=== PATIENT | female | born 1955 | race Caucasian/White ===

== ENCOUNTER 2024-08-06 19:48 | Outpatient (REF) | payer MEDICARE, MEDICAID, SELFPAY ==
[2024-08-06 20:06] LABS: Abs Immature Grans 0.02 10^3/uL (0.0-0.06); Absolute Basophil Count 0.03 10^3/uL (0.0-0.2); Absolute Eosinophil Count 0.21 10^3/uL (0.0-0.7); Absolute Neutrophil Count 5.65 10^3/uL (1.2-6.7); Basophils % 0.4 %; Eosinophils % 2.9 %; HCT 28.8 % (36.0-46.0); HGB 8.8 g/dL (11.2-15.7); Immature Grans % 0.3 %; Lymphocytes % 12.3 %; MCH 29.1 pg (27.0-33.0); MCHC 30.6 % (32.0-36.0); MCV 95 fL (80-95); MPV 10.8 fL (8.0-11.0); Monocytes % 6.8 %; Neutrophils % 77.3 %; Platelet Count 361 10^3/uL (130-400); RBC 3.02 10^6/uL (3.93-5.22); RDW 14.9 % (11.7-14.6); RDW-SD 52.1 fL; WBC 7.31 10^3/uL (4.4-10.8)
[2024-08-06 20:23] LABS: Iron 25 ug/dL (50-170); Total Iron Binding Capacity 202 ug/dL (250-450); Transferrin Sat 12 % (15-50)
[2024-08-06 20:33] LABS: Hemoglobin A1C 5.2 % (<5.7)
[2024-08-06 20:50] LABS: ALT 38 U/L (14-59); AST 29 U/L (15-37); Albumin 2.6 g/dL (3.4-5.0); Alkaline Phosphatase 152 U/L (46-116); Anion Gap 7.1 mmol/L (3-11); BUN 7 mg/dL (7-18); Bilirubin, Total 0.3 mg/dL (0.2-1.0); CO2 32.9 mmol/L (21.0-32.0); CREATININE 0.9 mg/dL (0.55-1.02); Calcium 8.7 mg/dL (8.5-10.1); Chloride 110 mmol/L (98-107); Estimated GFR 68.77 (mL/min/1.73m2); Ferritin 58 ng/mL (8-252); Folate 14.3 ng/mL (8.6-20.0); Glucose 106 mg/dL (74-106); Potassium 3.3 mmol/L (3.5-5.1); Sodium 150 mmol/L (136-145); TSH (W/Ref FT4) 0.69 uIU/mL (0.36-3.74); Total Protein 5.2 g/dL (6.4-8.2); Vitamin B12 576 pg/mL (193-986); Vitamin D 25 Total 43 ng/mL (30-100)
[2024-08-06 21:20] LABS: NT-proBNP 205 pg/mL (<300)
== END 2024-08-06 19:49 | disposition home or self-care (01) ==
LOC: LBN 19:48
PROVIDERS: PCP Family Medicine; Visit Provider Nurse Practitioner Gerontology
DX: I50.9 Heart failure, unspecified (principal); R73.03 Prediabetes; E55.9 Vitamin D deficiency, unspecified; E87.8 Other disorders of electrolyte and fluid balance, not elsewhere classified; D52.9 Folate deficiency anemia, unspecified; D50.9 Iron deficiency anemia, unspecified; R53.81 Other malaise; D63.1 Anemia in chronic kidney disease
CPT/HCPCS: 80053; 82306; 82607; 82728; 82746; 83036; 83540; 83550; 83735; 83880; 84443; 85025

== ENCOUNTER 2024-09-06 08:35 | Inpatient (IN) | payer MEDICARE, MEDICAID, SELFPAY ==
[2024-09-06] VITALS (24 sets, daily range): BP systolic 147–185; BP diastolic 79–108; PULSE 97–120; RESP 12–26; TEMP 36.7–37.3; O2SAT 92–97
--- NOTE | 2024-09-06 08:30 | RT.EKG_ITS ---
APPROVED REPORT Exam: Resting ECG Reason for Exam: seizure activity Patient Location: E HR:113 bpm ECG Measurements Heart Rate 113 AXIS SC 176 P 46 QRSd 73 QRS -14 QT 345 T 15 QTc 473 Conclusion Sinus tachycardia, rate 113 No interval abnormalities No STEMI Q waves III, aVF No priors available for comparison
--- NOTE | 2024-09-06 08:30 | DI.RAD_ITS ---
Exam(s) XR CHEST 1V IN DI DEPT EXAM: XR CHEST 1V IN DI DEPT CLINICAL HISTORY: tachycardia TECHNIQUE: 2D digital imaging was performed of the chest. One image was obtained. An AP view was ob tained. COMPARISON: No exams were available for comparison FINDINGS: MEDIASTINUM: Normal. HEART: Normal. PULMONARY VASCULATURE: Normal. LUNGS: There are increased lung markings in the right base. The left lung is clear. PLEURAL SPACE: No pleural effusion or pneumothorax. BONE:Within normal limits for the patient's age. There is an old left 3rd rib fracture deformity. Th e patient has a left shoulder prosthesis. OTHER FINDINGS:Normal. IMPRESSION: Small infiltrate in the right lung base. Atelectasis versus pneumonia. Please correlate clinically. DATA REPOSITORY: RADIATION DOSE DELIVERED:
[2024-09-06 09:04] LABS: Abs Immature Grans 0.12 10^3/uL (0.0-0.06); Absolute Basophil Count 0.03 10^3/uL (0.0-0.2); Absolute Eosinophil Count 0.16 10^3/uL (0.0-0.7); Absolute Lymphocyte Count 0.82 10^3/uL (1.2-3.4); Absolute Monocyte Count 0.31 10^3/uL (0.1-0.8); Absolute Neutrophil Count 6.24 10^3/uL (1.2-6.7); Basophils % 0.4 %; Eosinophils % 2.1 %; HCT 33.6 % (36.0-46.0); Immature Grans % 1.6 %; Lymphocytes % 10.7 %; MCH 28.9 pg (27.0-33.0); MCHC 32.7 % (32.0-36.0); MCV 88 fL (80-95); MPV 10.2 fL (8.0-11.0); Neutrophils % 81.2 %; Platelet Count 313 10^3/uL (130-400); RBC 3.81 10^6/uL (3.93-5.22); RDW 13.2 % (11.7-14.6); RDW-SD 42.3 fL; WBC 7.68 10^3/uL (4.4-10.8)
[2024-09-06 09:08] LABS: Lactate 5.5 mmol/L (<or=2.0)
[2024-09-06 09:28] LABS: ALT 20 U/L (14-59); AST 27 U/L (15-37); Albumin 3.1 g/dL (3.4-5.0); Alkaline Phosphatase 123 U/L (46-116); BUN 6 mg/dL (7-18); Bilirubin, Total 0.5 mg/dL (0.2-1.0); CREATININE 1.1 mg/dL (0.55-1.02); Calcium 9.1 mg/dL (8.5-10.1); Chloride 104 mmol/L (98-107); Estimated GFR 54.06 (mL/min/1.73m2); Glucose 155 mg/dL (74-106); Lipase 17 U/L (<78); Magnesium 1.9 mg/dL (1.8-2.4); Sodium 144 mmol/L (136-145); Total Protein 6.4 g/dL (6.4-8.2)
[2024-09-06 09:30] LABS: Creatine Kinase 51 U/L (26-192)
[2024-09-06 09:31] LABS: Ammonia < 10 umol/L (11-32)
[2024-09-06 09:32] LABS: TSH (W/Ref FT4) 1.82 uIU/mL (0.36-3.74); Troponin I 6 ng/L (<or=51)
[2024-09-06] MEDS: Omnipaque 350 MG/ML 100 ML BTL IJ ×2 (09:34→09:37)
[2024-09-06 09:35] LABS: Potassium 2.8 mmol/L (3.5-5.1)
[2024-09-06] MEDS: Normal Saline - Diluent 50 ML VIAL IJ (09:40)
--- NOTE | 2024-09-06 09:41 | NUR.NOTE ---
Nursing Note: left AC IV infiltrated during CT w/ contrast. IV DCed and warm pack applied to area
[2024-09-06] MEDS: Normal Saline 1,000 ML 1000 ML IV (09:43)
--- NOTE | 2024-09-06 09:45 | DI.CT_ITS ---
Exam(s) CT BRAIN NECK CTA EXAM: CT BRAIN NECK CTA CLINICAL HISTORY: seizure activity, no history; schizophrenic. TECHNIQUE: Imaging Protocol: Axial CT angiography was performed with multi-slice acquisition and mu lti-planar and/or 3D reconstructions. CONTRAST MATERIAL: Intravenous: Omnipaque 350 contrast volume:70 mL COMPARISON: No exams were available for comparison FINDINGS: CT Head W/O and W: Ventricles and Extra axial spaces: Normal in size and morphology for the patient's age. Hemorrhage: None. Cerebral parenchyma: There are areas of decreased attenuation in the white matter likely reflecting c hronic microvascular ischemic disease. No acute mass effect. No evidence of an acute territorial in farct is seen. Midline shift: None. Brainstem/Cerebellum: Normal. Calvarium: Normal. Visualized Paranasal sinuses/Mastoids: Clear. Soft Tissues: Unremarkable. Enhancement: Unremarkable. CTA Neck W: Common Carotid: Right: No dissection, occlusion or significant stenosis. Left: No dissection, occlusion or significant stenosis. External Carotid: Right: No occlusion or significant stenosis. Left: No occlusion or significant stenosis. Internal Carotid: Right: No dissection, occlusion or significant stenosis. Left: No dissection, occlusion or significant stenosis. Vertebral Artery: Right: No dissection, occlusion or significant stenosis. Left: No dissection, occlusion or significant stenosis. Lung Apices: Normal. Bones: Within normal limits for the patient's age. Age-appropriate degenerative changes are present. Soft Tissues: Normal. Thyroid gland: Unremarkable. CTA Brain W: Internal Carotid Arteries: There is mild atherosclerotic calcification present. No occlusion, aneurys m or significant stenosis is present. Anterior Cerebral Arteries: Right: No aneurysm, occlusion or significant stenosis. Left: No aneurysm, occlusion or significant stenosis. Middle Cerebral Arteries: Right: No aneurysm, occlusion or significant stenosis. Left: No aneurysm, occlusion or significant stenosis. Posterior Cerebral Arteries: Right: No aneurysm, occlusion or significant stenosis. Left: No aneurysm, occlusion or significant stenosis. Vertebral Arteries: Right: No aneurysm, occlusion or significant stenosis. Left: No aneurysm, occlusion or significant stenosis. Basilar Artery: No aneurysm, occlusion or significant stenosis. IMPRESSION: 1. No large vessel occlusion or significant stenosis on the CT angiography of the head. 2. No acute intracranial process. 3. No evidence of an intracranial mass or enhancing lesion. 4. No occlusion or significant stenosis on the CT angiography of the neck. RADIATION DOSE DELIVERED: 2,294.61mGy.cm Total DLP DATA REPOSITORY: All CT scans at this facility are submitted to the National Radiology Data Registry (NRDR) Dose Index Registry (DIR) with the [employer] (A[employer]). RADIATION OPTIMIZATION: All CT scans at this facility use at least one of these dose optimization te chniques: automated exposure control; mA and/or kV adjustment per patient size (includes targeted exa ms where dose is matched to clinical indication); or iterative reconstruction.
[2024-09-06] MEDS: MAGNESIUM SULFATE 1 GM/100 ML BAG IV_INF (10:09)
[2024-09-06] MEDS: POTASSIUM CHLORIDE 10 MEQ/100 ML BAG 100 MEQ IV_INF ×2 (10:09→11:49)
--- NOTE | 2024-09-06 10:15 | W.ED.GENAD ---
Discharge Plan Disposition Patient Disposition: Admit to [facility] Condition: Stable Discharge Details Clinical Impression: Witnessed seizure-like activity, Urinary tract infection, Right lower lobe pneumonia Admit Date/Time: 09/06/24 13:21 Admit Provider: Pankaj Zamora Attending Provider: Pankaj Zamora Primary Care Provider: [facility] ED Provider: Ernst Ramirez HPI General Date/Time Provider Initiated Documentation: 09/06/24 08:40. HPI Narrative: 69 year-old female presents to ED today by EMS with a chief complaint of witnessed seizure-like activity at the [facility] in [place], no seizure history per staff there- has known schizophrenia on Abilify, gets around at baseline but doesn't talk much with onset just prior to arrival, 30-60 mins ago. Quality described as not described as full tonic-clonic activity staff relayed to EMS, no radiation to known trauma, obvious bruising/swelling/deformity, abnormal vitals. Severity is described as unable to quantify. Palliating factors include patient was given 2mg IVP Ativan by EMS in route. Provoking factors include nothing specific. Patient not anticoagulated. Related Data Home Medications ?Medication ?Instructions ?Recorded ?Confirmed aripiprazole 5 mg tablet 5 mg PO DAILY 02/24/23 09/06/24 enoxaparin 40 mg/0.4 mL 40 mg subcut BID 09/06/24 09/06/24 subcutaneous syringe paliperidone palmitate 117 mg/0.75 117 mg IM Q30D 09/06/24 09/06/24 mL intramuscular syringe (Erzofri) Allergies Allergy/AdvReac Type Severity Reaction Status Date / Time erythromycin base Allergy unknown Verified 06/24/23 14:20 General Stated Complaint: Seizure GABY: 2 Review of Systems All systems reviewed & are unremarkable except as noted in HPI and below Exam Narrative Exam Narrative: GENERAL APPEARANCE: Frail and cachectic, non-toxic, postictal or catatonic, gazing straight ahead without reactions to spontaneous events, atraumatic, no acute distress. SKIN: Warm, pink, dry, intact, without rashes/lesions/ulcerations. HEAD: Normocephalic, atraumatic-no [place] sign, no periorbital ecchymosis, normal hair distribution for gender/age. EYES: Normal conjunctiva, no exudates on lids/lashes, pupils PERRLA, patient is gazing around the room very infrequently and her EOMs appear to be intact but she does not cooperate with EOM testing ENT: Nares patent, no circumoral cyanosis, no facial swelling NECK: Supple, trachea midline, painless cervical ROM, no nuchal rigidity. LUNGS/CHEST: Lungs CTA bilaterally-no rhonchi/rales/wheezes diffusely, non-labored respirations, normal A/P diameter, symmetrical expansion, no chest wall deformity HEART (CV/PV): Regular rate and rhythm without murmur, no peripheral edema, no JVD. ABDOMEN: Soft, non-distended, no guarding, no ecchymosis or rigidity or tenderness. MSK: Normal ROM, no swelling/deformity to bilateral UEs or LEs, moving all extremities without weakness, no cyanosis, spine midline without tenderness, normal curvature. NEURO: Mental Status flat and encephalopathic No facial droop, no forehead involvement. Motor: No focal weakness - strength 5/5 in bilateral UEs and LEs, proximal and distal, symmetric, able to squeeze my hand Sensory: sensation intact to light touch globally. Gait NT PSYCH: Eyes open, occasional following of spontaneous events, mumbling, unclear baseline with schizophrenia Course Vital Signs Vital signs: Vital Signs Temperature 36.7 C 09/06/24 08:37 Pulse 114 H 09/06/24 08:37 Respiratory Rate 18 09/06/24 08:37 Blood Pressure 171/95 H 09/06/24 08:37 Pulse Oximetry 92 09/06/24 08:37 Temperature 36.7 C 09/06/24 08:37 Temperature Source Tympanic 09/06/24 08:37 Pulse 114 H 09/06/24 08:37 Respiratory Rate 18 09/06/24 08:37 Blood Pressure 171/95 H 09/06/24 08:37 Pulse Oximetry 92 09/06/24 08:37 Oxygen Delivery Method Room Air 09/06/24 08:37 Oxygen Flow Rate 0 09/06/24 08:37 Lab/Test Results Lab/Test Results: 09/06/24 08:58 Blood Blood Culture - Pending 09/06/24 08:41 Blood Blood Culture - Pending Laboratory Tests Range/Units 09/06/24 09/06/24 08:53 08:58 WBC (4.4-10.8) 10^3/uL 7.68 RBC (3.93-5.22) 10^6/uL 3.81 L Hgb (11.2-15.7) g/dL 11.0 L Hct (36.0-46.0) % 33.6 L MCV (80-95) fL 88 MCH (27.0-33.0) pg 28.9 MCHC (32.0-36.0) % 32.7 RDW (11.7-14.6) % 13.2 Plt Count (130-400) 10^3/uL 313 MPV (8.0-11.0) fL 10.2 Immature Gran % % 1.6 Neutrophils % % 81.2 Lymphocytes % % 10.7 Monocytes % % 4.0 Eosinophils % % 2.1 Basophils % % 0.4 Nucleated RBC % (0.0-0.3) % 0.0 Absolute Neutrophils (1.2-6.7) 10^3/uL 6.24 Absolute Lymphocytes (1.2-3.4) 10^3/uL 0.82 L Absolute Monocytes (0.1-0.8) 10^3/uL 0.31 Absolute Eosinophils (0.0-0.7) 10^3/uL 0.16 Absolute Basophils (0.0-0.2) 10^3/uL 0.03 VBG Lactate (<or=2.0) mmol/L 5.5 H* Sodium (136-145) mmol/L 144 Potassium (3.5-5.1) mmol/L 2.8 L* Chloride (98-107) mmol/L 104 Carbon Dioxide (21.0-32.0) mmol/L 29.0 Anion Gap (3-11) mmol/L 11.0 BUN (7-18) mg/dL 6 L Creatinine (0.55-1.02) mg/dL 1.1 H Est GFR (CKD-EPI 2020) (mL/min/1.73m2) 54.06 Glucose (74-106) mg/dL 155 H Calcium (8.5-10.1) mg/dL 9.1 Magnesium (1.8-2.4) mg/dL 1.9 Total Bilirubin (0.2-1.0) mg/dL 0.5 AST (15-37) U/L 27 ALT (14-59) U/L 20 Alkaline Phosphatase (46-116) U/L 123 H Ammonia (11-32) umol/L < 10 L Creatine Kinase (26-192) U/L 51 Troponin I (<or=51) ng/L 6 Total Protein (6.4-8.2) g/dL 6.4 Albumin (3.4-5.0) g/dL 3.1 L Lipase (<78) U/L 17 TSH (0.36-3.74) uIU/mL 1.82 Medical Decision Making This dictation utilizes [id number] dictation software and may contain unedited grammatical errors. 69 year-old female presents to ED today by EMS with a chief complaint of witnessed seizure-like activity at the [facility], no seizure history per staff there- has known schizophrenia on Abilify, gets around at baseline but doesn't talk much with onset just prior to arrival, 30-60 mins ago. Quality described as not described as full tonic-clonic activity staff relayed to EMS, no radiation to known trauma, obvious bruising/swelling/deformity, abnormal vitals. Severity is described as unable to quantify. Palliating factors include patient was given 2mg IVP Ativan by EMS in route. Provoking factors include nothing specific. Patients' medical history: Schizophrenia, psychotic disorder. Family and social history: Lives at the [facility], otherwise does not answer questions. Pertinent exam findings / vital signs include patient has a fixed gaze slightly to the left, brief seconds where she follows activity spontaneously and mumbles words, she is able to move all extremities, she does gently squeeze my hand when asked, I am unclear on her psychologic baseline with her chronic schizophrenia, benign cardiopulmonary exam, benign abdomen, nontoxic, no nuchal rigidity, managing secretions well. Differential / pathologies of concern include encephalopathy, seizure activity, provoked seizure, infectious etiology, side effect of antipsychotic medication. Diagnostic studies of: - CBC, CMP, lactate, magnesium, serial troponins, CK, ammonia, lipase, TSH, UA, blood cultures, EKG, CTA brain and neck, XR chest. Interventions of: -[facility] TeleNeurology consult - spoke to Dr. Tena @ [phone]-patient has a difficult neuroexam for even [facility] teleneurology, she could be postictal but you would expect that side effects of Ativan would have worn off by now at 3.5 hours into her visit, Dr. Jones states that postictal state can last for 24 hours, we discussed that this is likely a provoked seizure due to the evidence of nitrates on the patient's urinalysis and she does have a right lower lobe infiltrate, she has received ceftriaxone for this, teleneurology recommends observation of the patient, if she does not improve from this state to somewhat of a more alert state by the 12-hour ajne they recommend loading her with Keppra and further observation, at this time they recommend against transfer for EEG, patient may also be encephalopathic from unknown cause like infection but her UTI appears to be mild on urinalysis. - Spoke with hospitalist Dr. Zamora @ [phone], accepted for admission ED Course/Assessment/Plan: 69-year-old female presents by EMS for witnessed seizure-like activity at the [facility] in [place], she has no seizure history but does have a significant history of chronic schizophrenia on Abilify, per the staff there she does get up and get around quite well but does not talk often. She is essentially catatonic on arrival and received 2 mg of IV push lorazepam by EMS. She is not having any focal clonus or tonic-clonic activity during my exam, she does slightly improve over the next hour to mumble words and gaze around the room at spontaneous events more frequently but is overall encephalopathic or postictal. Her lactate initially was 5.5 indicating likely seizure activity. Her chest x-ray shows a right lower lobe infiltrate and her urinalysis shows nitrates making this likely a urinary tract infection which was covered with IV ceftriaxone, blood cultures are pending, CTA of her head and neck are unremarkable, discussed findings with [facility] teleneurology and they recommend hobs due to provoked seizure, do not recommend transfer for specialty care and admission like EEG and MRI at this time, they recommend starting her on IV loading dose of Keppra if seizures not improved at the 12-hour jane with possible need for reconsultation if she has not improved in a full 24 hours with initiation of antiepileptic therapy. Dr. Vazquez accepts for admission, no acute complications in department, no labile vital signs or decompensation. Findings not consistent with status epilepticus, severe electrolyte derangement, stroke, ICH, respiratory distress or failure, rhabdomyolysis. Disposition of Witnessed Seizure-Like Activity, Urinary Tract Infection, Right Lower Lobe Pneumonia. Patient verbalized understanding of the plan and return to ED criteria and engaged in shared decision making. Medical Records Medical records reviewed: Yes I reviewed the patient's medical records. Imaging Data Radiologic Study: Attestation: I personally reviewed and interpreted this imaging study as follows: Imaging: CT Scan Radiologist's impression: EXAM: CT BRAIN NECK CTA CLINICAL HISTORY: seizure activity, no history; schizophrenic. TECHNIQUE: Imaging Protocol: Axial CT angiography was performed with multi-slice acquisition and multi-planar and/or 3D reconstructions. CONTRAST MATERIAL: Intravenous: Omnipaque 350 contrast volume:70 mL COMPARISON: No exams were available for comparison FINDINGS: CT Head W/O and W: Ventricles and Extra axial spaces: Normal in size and morphology for the patient's age. Hemorrhage: None. Cerebral parenchyma: There are areas of decreased attenuation in the white matter likely reflecting chronic microvascular ischemic disease. No acute mass effect. No evidence of an acute territorial infarct is seen. Midline shift: None. Brainstem/Cerebellum: Normal. Calvarium: Normal. Visualized Paranasal sinuses/Mastoids: Clear. Soft Tissues: Unremarkable. Enhancement: Unremarkable. CTA Neck W: Common Carotid: Right: No dissection, occlusion or significant stenosis. Left: No dissection, occlusion or significant stenosis. External Carotid: Right: No occlusion or significant stenosis. Left: No occlusion or significant stenosis. Internal Carotid: Right: No dissection, occlusion or significant stenosis. Left: No dissection, occlusion or significant stenosis. Vertebral Artery: Right: No dissection, occlusion or significant stenosis. Left: No dissection, occlusion or significant stenosis. Lung Apices: Normal. Bones: Within normal limits for the patient's age. Age-appropriate degenerative changes are present. Soft Tissues: Normal. Thyroid gland: Unremarkable. CTA Brain W: Internal Carotid Arteries: There is mild atherosclerotic calcification present. No occlusion, aneurysm or significant stenosis is present. Anterior Cerebral Arteries: Right: No aneurysm, occlusion or significant stenosis. Left: No aneurysm, occlusion or significant stenosis. Middle Cerebral Arteries: Right: No aneurysm, occlusion or significant stenosis. Left: No aneurysm, occlusion or significant stenosis. Posterior Cerebral Arteries: Right: No aneurysm, occlusion or significant stenosis. Left: No aneurysm, occlusion or significant stenosis. Vertebral Arteries: Right: No aneurysm, occlusion or significant stenosis. Left: No aneurysm, occlusion or significant stenosis. Basilar Artery: No aneurysm, occlusion or significant stenosis. IMPRESSION: 1. No large vessel occlusion or significant stenosis on the CT angiography of the head. 2. No acute intracranial process. 3. No evidence of an intracranial mass or enhancing lesion. 4. No occlusion or significant stenosis on the CT angiography of the neck. Radiologic Study #2: Attestation: I personally reviewed and interpreted this imaging study as follows: Imaging: X-Ray Radiologist's impression: EXAM: XR CHEST 1V IN DI DEPT CLINICAL HISTORY: tachycardia TECHNIQUE: 2D digital imaging was performed of the chest. One image was obtained. An AP view was obtained. COMPARISON: No exams were available for comparison FINDINGS: MEDIASTINUM: Normal. HEART: Normal. PULMONARY VASCULATURE: Normal. LUNGS: There are increased lung markings in the right base. The left lung is clear. PLEURAL SPACE: No pleural effusion or pneumothorax. BONE:Within normal limits for the patient's age. There is an old left 3rd rib fracture deformity. The patient has a left shoulder prosthesis. OTHER FINDINGS:Normal. IMPRESSION: Small infiltrate in the right lung base. Atelectasis versus pneumonia. Please correlate clinically. Lab Data Lab results reviewed: Yes I reviewed the patient's lab results. Labs: 09/06/24 10:43 Urine - Reflex from Ua Urine Culture - Pending 09/06/24 10:00 Blood Blood Culture - Pending 09/06/24 08:58 Blood Blood Culture - Pending Laboratory Tests Range/Units 09/06/24 09/06/24 09/06/24 08:53 08:58 10:00 WBC (4.4-10.8) 10^3/uL 7.68 RBC (3.93-5.22) 10^6/uL 3.81 L Hgb (11.2-15.7) g/dL 11.0 L Hct (36.0-46.0) % 33.6 L MCV (80-95) fL 88 MCH (27.0-33.0) pg 28.9 MCHC (32.0-36.0) % 32.7 RDW (11.7-14.6) % 13.2 Plt Count (130-400) 10^3/uL 313 MPV (8.0-11.0) fL 10.2 Immature Gran % % 1.6 Neutrophils % % 81.2 Lymphocytes % % 10.7 Monocytes % % 4.0 Eosinophils % % 2.1 Basophils % % 0.4 Nucleated RBC % (0.0-0.3) % 0.0 Absolute Neutrophils (1.2-6.7) 10^3/uL 6.24 Absolute Lymphocytes (1.2-3.4) 10^3/uL 0.82 L Absolute Monocytes (0.1-0.8) 10^3/uL 0.31 Absolute Eosinophils (0.0-0.7) 10^3/uL 0.16 Absolute Basophils (0.0-0.2) 10^3/uL 0.03 VBG Lactate (<or=2.0) mmol/L 5.5 H* Sodium (136-145) mmol/L 144 Potassium (3.5-5.1) mmol/L 2.8 L* Chloride (98-107) mmol/L 104 Carbon Dioxide (21.0-32.0) mmol/L 29.0 Anion Gap (3-11) mmol/L 11.0 BUN (7-18) mg/dL 6 L Creatinine (0.55-1.02) mg/dL 1.1 H Est GFR (CKD-EPI 2020) (mL/min/1.73m2) 54.06 Glucose (74-106) mg/dL 155 H Calcium (8.5-10.1) mg/dL 9.1 Magnesium (1.8-2.4) mg/dL 1.9 Total Bilirubin (0.2-1.0) mg/dL 0.5 AST (15-37) U/L 27 ALT (14-59) U/L 20 Alkaline Phosphatase (46-116) U/L 123 H Ammonia (11-32) umol/L < 10 L Creatine Kinase (26-192) U/L 51 Troponin I (<or=51) ng/L 6 12 Total Protein (6.4-8.2) g/dL 6.4 Albumin (3.4-5.0) g/dL 3.1 L Lipase (<78) U/L 17 TSH (0.36-3.74) uIU/mL 1.82 Urine Color (Yellow) Urine Clarity (Clear) Urine pH (5-8) Ur Specific [place] (1.005-1.025) Urine Protein (Neg-Trace) mg/dL Urine Ketones (Negative) mg/dL Urine Blood (Negative) Urine Nitrite (Negative) Urine Bilirubin (Negative) Urine Urobilinogen (Up to 0.2) mg/dL Ur Leukocyte Esterase (Negative) Urine RBC (0-2) HPF Urine WBC (0-5) HPF Ur Epithelial Cells (Negative) HPF Urine Crystals (Negative) HPF Urine Bacteria (Negative) HPF Urine Casts (Negative) LPF Urine Mucus (Negative) Ur Culture Indicated? Urine Glucose (Negative) mg/dL Range/Units 09/06/24 10:43 WBC (4.4-10.8) 10^3/uL RBC (3.93-5.22) 10^6/uL Hgb (11.2-15.7) g/dL Hct (36.0-46.0) % MCV (80-95) fL MCH (27.0-33.0) pg MCHC (32.0-36.0) % RDW (11.7-14.6) % Plt Count (130-400) 10^3/uL MPV (8.0-11.0) fL Immature Gran % % Neutrophils % % Lymphocytes % % Monocytes % % Eosinophils % % Basophils % % Nucleated RBC % (0.0-0.3) % Absolute Neutrophils (1.2-6.7) 10^3/uL Absolute Lymphocytes (1.2-3.4) 10^3/uL Absolute Monocytes (0.1-0.8) 10^3/uL Absolute Eosinophils (0.0-0.7) 10^3/uL Absolute Basophils (0.0-0.2) 10^3/uL VBG Lactate (<or=2.0) mmol/L Sodium (136-145) mmol/L Potassium (3.5-5.1) mmol/L Chloride (98-107) mmol/L Carbon Dioxide (21.0-32.0) mmol/L Anion Gap (3-11) mmol/L BUN (7-18) mg/dL Creatinine (0.55-1.02) mg/dL Est GFR (CKD-EPI 2020) (mL/min/1.73m2) Glucose (74-106) mg/dL Calcium (8.5-10.1) mg/dL Magnesium (1.8-2.4) mg/dL Total Bilirubin (0.2-1.0) mg/dL AST (15-37) U/L ALT (14-59) U/L Alkaline Phosphatase (46-116) U/L Ammonia (11-32) umol/L Creatine Kinase (26-192) U/L Troponin I (<or=51) ng/L Total Protein (6.4-8.2) g/dL Albumin (3.4-5.0) g/dL Lipase (<78) U/L TSH (0.36-3.74) uIU/mL Urine Color (Yellow) Yellow Urine Clarity (Clear) Clear Urine pH (5-8) 7.0 Ur Specific [place] (1.005-1.025) 1.010 Urine Protein (Neg-Trace) mg/dL Negative Urine Ketones (Negative) mg/dL Negative Urine Blood (Negative) Negative Urine Nitrite (Negative) Positive H Urine Bilirubin (Negative) Negative Urine Urobilinogen (Up to 0.2) mg/dL 0.2 Ur Leukocyte Esterase (Negative) Negative Urine RBC (0-2) HPF 0-2 Urine WBC (0-5) HPF 5-10 Ur Epithelial Cells (Negative) HPF Rare Urine Crystals (Negative) HPF Negative Urine Bacteria (Negative) HPF Moderate Urine Casts (Negative) LPF Negative Urine Mucus (Negative) Negative Ur Culture Indicated? Yes Urine Glucose (Negative) mg/dL Negative Quality:SDOH Health Related Social Needs: No Data to Display PFSH All Active Problems (Updated 09/06/24 @ 14:39 by Jacquelin Addison APRN) Discharge planning issues (Acute) On deep vein thrombosis (DVT) prophylaxis (Acute) Hypokalemia (Acute) Right lower lobe pneumonia (Acute) Urinary tract infection (Acute) Witnessed seizure-like activity (Acute) Vasomotor rhinitis (Acute) Medical History (Updated 09/06/24 @ 14:39 by Jacquelin Addison APRN) Schizophrenia Psychotic disorder Fracture of multiple pubic rami Fracture of humeral head, left, closed Surgical History (Updated 02/24/23 @ 15:37 by Shereen Nguyen) History of arthroplasty of left shoulder Hx of appendectomy Social History Smoking/Tobacco Use Status: Never Smoking risk assessment performed?: Yes Alcohol Intake: never Substance use type: does not use Housing: penitentiary
[2024-09-06 10:43] LABS: Troponin I 12 ng/L (<or=51)
[2024-09-06 10:55] LABS: Bilirubin Negative (Negative); Blood Negative (Negative); Clarity Clear (Clear); Glucose Negative (Negative); Ketones Negative (Negative); Leukocyte Esterase Negative (Negative); Nitrite Positive (Negative); Urobilinogen 0.2 mg/dL (Up to 0.2)
[2024-09-06 11:02] LABS: Bacteria Moderate HPF (Negative); C & S Indicated? Yes; Casts Negative LPF (Negative); Crystals Negative HPF (Negative); Epithelial Cells Rare HPF (Negative); Mucus Negative (Negative); RBC 0-2 HPF (0-2)
[2024-09-06] MEDS: Potassium Chloride Liquid 20 MEQ PKT 40 MEQ PO (11:14)
[2024-09-06] MEDS: cefTRIAXone 2 GM/50 ML BAG IVPB (11:15)
--- NOTE | 2024-09-06 13:05 | W.PC.ACHO ---
Registration Status: Primary Language: Preferred Language: ED Information & Data Chief Complaint Seizure 09/06/24 12:10 Chief Complaint Seizure 09/06/24 10:17 Triage Note BIBA witnessed seizure like 09/06/24 08:37 activity approx 0755 this AM , has gaze to left, was given 2mg lorazepam prior to arrival, Blood sugar 184 normally able to walk and verbal Medical / Surgical History (Last Updated 02/24/23 @ 15:37 by Shereen Nguyen) Schizophrenia Psychotic disorder Fracture of multiple pubic rami Fracture of humeral head, left, closed (Last Updated 02/24/23 @ 15:37 by Shereen Nguyen) History of arthroplasty of left shoulder Hx of appendectomy Most Recent Vital Signs Temperature 36.7 C 09/06/24 08:37 Temperature Source Tympanic 09/06/24 08:37 Pulse 110 H 09/06/24 12:10 Pulse 110 H 09/06/24 12:10 Respiratory Rate 16 09/06/24 12:10 Blood Pressure 178/98 H 09/06/24 12:11 Blood Pressure Mean 124 09/06/24 12:11 Pulse Oximetry 96 09/06/24 12:10 Oxygen Delivery Method Room Air 09/06/24 08:37 Oxygen Flow Rate 0 09/06/24 08:37 Allergies erythromycin base Allergy (Verified 06/24/23 14:20) unknown Precautions Isolation Standard precaution 09/06/24 12:10 Active Medications Generic Name Dose Route Start Last Admin Trade Name Freq PRN Reason Stop Dose Admin Iohexol 100 ml 09/06/24 09:30 09/06/24 09:37 Omnipaque 350 Mg/Ml 100 Ml Btl IJ 10/06/24 23:59 70 ml DIRECTED CLIFTON Administration Sodium Chloride 50 ml 09/06/24 09:45 09/06/24 09:40 Normal Saline - Diluent 50 Ml Vial IJ 50 ml .FOR DI USE CLIFTON Administration IV IV Catheter Type [Left Saline Lock Antecubital] IV Catheter Type [Right Saline Lock Antecubital] IV Catheter Gauge [Left 18 Antecubital] IV Catheter Gauge [Right 20 Antecubital] Diagnostics 09/06/24 09/06/24 09/06/24 Range/Units Unknown 10:43 10:00 WBC (4.4-10.8) 10^3/uL RBC (3.93-5.22) 10^6/uL Hgb (11.2-15.7) g/dL Hct (36.0-46.0) % MCV (80-95) fL MCH (27.0-33.0) pg MCHC (32.0-36.0) % RDW (11.7-14.6) % Plt Count (130-400) 10^3/uL MPV (8.0-11.0) fL Immature Gran % % Neutrophils % % Lymphocytes % % Monocytes % % Eosinophils % % Basophils % % Nucleated RBC % (0.0-0.3) % Absolute Neutrophils (1.2-6.7) 10^3/uL Absolute Lymphocytes (1.2-3.4) 10^3/uL Absolute Monocytes (0.1-0.8) 10^3/uL Absolute Eosinophils (0.0-0.7) 10^3/uL Absolute Basophils (0.0-0.2) 10^3/uL VBG Lactate Pending (<or=2.0) mmol/L Sodium (136-145) mmol/L Potassium (3.5-5.1) mmol/L Chloride (98-107) mmol/L Carbon Dioxide (21.0-32.0) mmol/L Anion Gap (3-11) mmol/L BUN (7-18) mg/dL Creatinine (0.55-1.02) mg/dL Est GFR (CKD-EPI 2020) (mL/min/1.73m2) Glucose (74-106) mg/dL Calcium (8.5-10.1) mg/dL Magnesium (1.8-2.4) mg/dL Total Bilirubin (0.2-1.0) mg/dL AST (15-37) U/L ALT (14-59) U/L Alkaline Phosphatase (46-116) U/L Ammonia (11-32) umol/L Creatine Kinase (26-192) U/L Troponin I 12 (<or=51) ng/L Total Protein (6.4-8.2) g/dL Albumin (3.4-5.0) g/dL Lipase (<78) U/L Procalcitonin Pending TSH (0.36-3.74) uIU/mL Urine Color Yellow (Yellow) Urine Clarity Clear (Clear) Urine pH 7.0 (5-8) Ur Specific [place] 1.010 (1.005-1.025) Urine Protein Negative (Neg-Trace) mg/dL Urine Ketones Negative (Negative) mg/dL Urine Blood Negative (Negative) Urine Nitrite Positive H (Negative) Urine Bilirubin Negative (Negative) Urine Urobilinogen 0.2 (Up to 0.2) mg/dL Ur Leukocyte Esterase Negative (Negative) Urine RBC 0-2 (0-2) HPF Urine WBC 5-10 (0-5) HPF Ur Epithelial Cells Rare (Negative) HPF Urine Crystals Negative (Negative) HPF Urine Bacteria Moderate (Negative) HPF Urine Casts Negative (Negative) LPF Urine Mucus Negative (Negative) Ur Culture Indicated? Yes Urine Glucose Negative (Negative) mg/dL 09/06/24 09/06/24 Range/Units 08:58 08:53 WBC 7.68 (4.4-10.8) 10^3/uL RBC 3.81 L (3.93-5.22) 10^6/uL Hgb 11.0 L (11.2-15.7) g/dL Hct 33.6 L (36.0-46.0) % MCV 88 (80-95) fL MCH 28.9 (27.0-33.0) pg MCHC 32.7 (32.0-36.0) % RDW 13.2 (11.7-14.6) % Plt Count 313 (130-400) 10^3/uL MPV 10.2 (8.0-11.0) fL Immature Gran % 1.6 % Neutrophils % 81.2 % Lymphocytes % 10.7 % Monocytes % 4.0 % Eosinophils % 2.1 % Basophils % 0.4 % Nucleated RBC % 0.0 (0.0-0.3) % Absolute Neutrophils 6.24 (1.2-6.7) 10^3/uL Absolute Lymphocytes 0.82 L (1.2-3.4) 10^3/uL Absolute Monocytes 0.31 (0.1-0.8) 10^3/uL Absolute Eosinophils 0.16 (0.0-0.7) 10^3/uL Absolute Basophils 0.03 (0.0-0.2) 10^3/uL VBG Lactate 5.5 H* (<or=2.0) mmol/L Sodium 144 (136-145) mmol/L Potassium 2.8 L* (3.5-5.1) mmol/L Chloride 104 (98-107) mmol/L Carbon Dioxide 29.0 (21.0-32.0) mmol/L Anion Gap 11.0 (3-11) mmol/L BUN 6 L (7-18) mg/dL Creatinine 1.1 H (0.55-1.02) mg/dL Est GFR (CKD-EPI 2020) 54.06 (mL/min/1.73m2) Glucose 155 H (74-106) mg/dL Calcium 9.1 (8.5-10.1) mg/dL Magnesium 1.9 (1.8-2.4) mg/dL Total Bilirubin 0.5 (0.2-1.0) mg/dL AST 27 (15-37) U/L ALT 20 (14-59) U/L Alkaline Phosphatase 123 H (46-116) U/L Ammonia < 10 L (11-32) umol/L Creatine Kinase 51 (26-192) U/L Troponin I 6 (<or=51) ng/L Total Protein 6.4 (6.4-8.2) g/dL Albumin 3.1 L (3.4-5.0) g/dL Lipase 17 (<78) U/L Procalcitonin TSH 1.82 (0.36-3.74) uIU/mL Urine Color (Yellow) Urine Clarity (Clear) Urine pH (5-8) Ur Specific [place] (1.005-1.025) Urine Protein (Neg-Trace) mg/dL Urine Ketones (Negative) mg/dL Urine Blood (Negative) Urine Nitrite (Negative) Urine Bilirubin (Negative) Urine Urobilinogen (Up to 0.2) mg/dL Ur Leukocyte Esterase (Negative) Urine RBC (0-2) HPF Urine WBC (0-5) HPF Ur Epithelial Cells (Negative) HPF Urine Crystals (Negative) HPF Urine Bacteria (Negative) HPF Urine Casts (Negative) LPF Urine Mucus (Negative) Ur Culture Indicated? Urine Glucose (Negative) mg/dL 09/06/24 10:43 Urine Culture - Pending Urine - Reflex from Ua 09/06/24 10:00 Blood Culture - Pending Blood 09/06/24 08:58 Blood Culture - Pending Blood Intake and Output - 24 Hour Total 09/06/24 08:28 thru 09/06/24 12:53 Intake Total 1370 Balance 1370 Weight 47.9 kg Intake: IV 1370 Falls Risk Assessment History of Falls Previous History 09/06/24 12:11 Contributing Factors Confusion,Unstable, 09/06/24 12:11 Impairments,Incontinence, Medications Ambulatory Aids Uses ambulatory device + 09/06/24 12:11 Tubes/Lines With any additional score 09/06/24 12:11 Gait Evaluation W/any additional score 09/06/24 12:11 Cognition Cognitive impairment 09/06/24 12:11 Fall Total Score 115 09/06/24 12:11 Level of Risk Maximum Risk 09/06/24 12:11 Problems (Last Updated 02/24/23 @ 15:37 by Shereen Nguyen) Right lower lobe pneumonia (Acute) Urinary tract infection (Acute) Witnessed seizure-like activity (Acute) Notes 09/06/24 09:41 Nursing Notes by Shira Garcia Nursing Note: left AC IV infiltrated during CT w/ contrast. IV DCed and warm pack applied to area Initialized on 09/06/24 09:41 - END OF NOTE v v v v v v v v v Sending and/or Receiving Nurses: Please use comment section below to note any information pertinent to the patient hand-off not included above. Information / Comments: pt to rm 215 from er Report received from: Shira vasquez
[2024-09-06 13:41] LABS: Lactate 1.1 mmol/L (<or=2.0)
[2024-09-06 14:15] LABS: Procalcitonin < 0.10 ng/mL
--- NOTE | 2024-09-06 14:33 | W.PM.HP.N ---
Date of service: 09/06/24 Time of Service: 14:33 Assessment and Plan Assessment and plan (1) Witnessed seizure-like activity: Status: Acute Assessment and plan: This is the primary working diagnosis. But in the setting of recently change Abilify to paliperidone and observed spasticity improving with initiation of benzodiazepines earlier with improvement in spasticity and catatonic state and now the reoccurrence of the symptoms, depression diagnosis of catatonia due to Abilify withdrawal should not be excluded. Moreover, clinical nurse leader reported that the patient had a previous episode of similarly observed seizure at [facility] recently; this was not reported to the emergency provider as well as to the tele- neurologist. In the case of catatonia benzodiazepine would be the course of treatment. Will follow the course for the primary working diagnosis and reevaluate in the morning. As the patient is displaying recurrence/crescendo of symptoms we will initiate Keppra loading. CTA head neck negative Neuroconsult: No MRI elias EEG recommendation at this time MRI in AM if no improvement of post-ictal state Ativan given NEON TUBE PUMPER will order for now (2) Encephalopathy: Status: Acute Assessment and plan: This might be due to postictal state versus catatonia in the setting of withdrawal from Abilify versus infectious etiology at for section 3 and 4 Ammonia is negative At this time the patient is unable to take in oral fluids and will complete slow IV hydration overnight and reassess in the morning (3) Right lower lobe pneumonia: Status: Acute Assessment and plan: As per chest imaging Continue ceftriaxone Blood cultures pending (4) Urinary tract infection: Status: Acute Assessment and plan: UA showing nitrate Urine culture pending And as per point 1 (5) Schizophrenia: Assessment and plan: Was treated with Abilify since been changed to paliperidone IM every month Will need to continue this therapy if her due date is met while she in hospital versus change in therapy needed. Open await records from recent stay at [facility] to tailor plan Consider psych consult if deemed necessary (6) Hypokalemia: Status: Acute Assessment and plan: K 2.8 in the setting of lactate at 5.5 Oral replacement X 1 given in ED IV replacement Telemetry BMP in AM (7) On deep vein thrombosis (DVT) prophylaxis: Status: Acute Assessment and plan: ON LMWH treatment dose for DVT as per home med list (8) Discharge planning issues: Status: Acute Assessment and plan: D/c to the [facility] when stable Discussed with Dr. Zamora History of Present Illness History of Present Illness Chief Complaint: Witnessed seizure-like activity Narrative: This 69-year-old female patient living at the [facility] with a past medical history of schizophrenia on Abilify with recent transition to IM paliperidone, recent stay at [facility] with reported witnessed seizure-like activity, presented today to the ED via EMS for witnessed seizure-like activity. Initially ED provider mentioned no seizure history with significant history of chronic schizophrenia when she was on Abilify. As per the staff at the [facility], the patient gets up and gets around quite well but does not talk often. On arrival the patient was described as catatonic and received 2 mg of IV push lorazepam by EMS. No observed focal clonus or tonic-clonic activity with slightly improvement resulting in word mumbling and gazing around the room over the next hour overall remaining overall encephalopathic or post-ictal. Head and neck CTA was negative, initial lactate at 5.5 in the setting of seizure activit-correcting to 1.1. Hypokalemia and hypomagnesemia also evident as per chemistry blood work. EKG showed sinus tachycardia heart rate 113 without signs of coronary occlusion. Chest x-ray showed right lower lobe infiltrate; UA positive for nitrate. Patient seen by neurology Dr. Ojeda was consulted with mention of postictal state lasting up to 24 hours likely provoked by seizure due to dizziness of nitrates on the patient's UA. Further recommendation to initiate Keppra loading at the 12-hour jane if no improvement during observation; recommendations against transfer for EEG. In the ED, IV ceftriaxone was initiated and the patient was admitted to the medical surgical floor cardiovascular service for further evaluation and management. Patient is a DNR/DNI as per records from [facility]. Patient also was not taking home meds and was treated with low molecular weight heparin for DVT. When seen in the room, the patient was initially able to slightly grab with her fingers on command,withdrawal from deep tactile stimulation, was unable to complete eye-opening and remains significantly spastic and nonverbal nonverbal. When seen later, increased spasticity observed. Review of system remains minimal as the patient was unable to answer questions. No vomiting, diarrhea, hematuria reported. Review of Systems All systems reviewed & are unremarkable except as noted in HPI and below PFSH All Active Problems (Updated 09/06/24 @ 20:11 by Jacquelin Addison APRN) Encephalopathy (Acute) Discharge planning issues (Acute) On deep vein thrombosis (DVT) prophylaxis (Acute) Hypokalemia (Acute) Right lower lobe pneumonia (Acute) Urinary tract infection (Acute) Witnessed seizure-like activity (Acute) Vasomotor rhinitis (Acute) Medical History (Updated 09/06/24 @ 20:11 by Jacquelin Addison APRN) Schizophrenia Psychotic disorder Fracture of multiple pubic rami Fracture of humeral head, left, closed Surgical History (Updated 02/24/23 @ 15:37 by Shereen Nguyen) History of arthroplasty of left shoulder Hx of appendectomy Social History Smoking/Tobacco Use Status: Never Smoking risk assessment performed?: Yes Alcohol Intake: never Substance use type: does not use [facility] Meds Allergies and Home Medications Allergies Allergy/AdvReac Type Severity Reaction Status Date / Time erythromycin base Allergy unknown Verified 06/24/23 14:20 Home Medications ?Medication ?Instructions ?Recorded ?Confirmed ?Type aripiprazole 5 mg tablet 5 mg PO DAILY 02/24/23 09/06/24 History enoxaparin 40 mg/0.4 mL 40 mg subcut BID 09/06/24 09/06/24 History subcutaneous syringe paliperidone palmitate 117 mg/0.75 117 mg IM Q30D 09/06/24 09/06/24 History mL intramuscular syringe (Erzofri) Exam Narrative Exam Narrative: 69 years old patient appearing older than stated age, nonverbal, nonfocal, generally spastic, PERRLA 3 brisk, GCS at 7, slightly dry oral mucosa, S1-S2 no murmur, clear lungs with diminished bilateral bases, nonacute abdomen, minimal abrasion to right knee, no other lesion/rash on exposed skin. Results Labs 09/06/24 08:53 09/06/24 08:53 Labs: Laboratory Results - last 24 hr 09/06/24 09/06/24 09/06/24 08:53 08:58 10:00 WBC 7.68 RBC 3.81 L Hgb 11.0 L Hct 33.6 L MCV 88 MCH 28.9 MCHC 32.7 RDW 13.2 Plt Count 313 MPV 10.2 Immature Gran % 1.6 Neutrophils % 81.2 Lymphocytes % 10.7 Monocytes % 4.0 Eosinophils % 2.1 Basophils % 0.4 Nucleated RBC % 0.0 Absolute Neutrophils 6.24 Absolute Lymphocytes 0.82 L Absolute Monocytes 0.31 Absolute Eosinophils 0.16 Absolute Basophils 0.03 VBG Lactate 5.5 H* Sodium 144 Potassium 2.8 L* Chloride 104 Carbon Dioxide 29.0 Anion Gap 11.0 BUN 6 L Creatinine 1.1 H Est GFR (CKD-EPI 2020) 54.06 Glucose 155 H Calcium 9.1 Magnesium 1.9 Total Bilirubin 0.5 AST 27 ALT 20 Alkaline Phosphatase 123 H Ammonia < 10 L Creatine Kinase 51 Troponin I 6 12 Total Protein 6.4 Albumin 3.1 L Lipase 17 Procalcitonin TSH 1.82 Urine Color Urine Clarity Urine pH Ur Specific [place] Urine Protein Urine Ketones Urine Blood Urine Nitrite Urine Bilirubin Urine Urobilinogen Ur Leukocyte Esterase Urine RBC Urine WBC Ur Epithelial Cells Urine Crystals Urine Bacteria Urine Casts Urine Mucus Ur Culture Indicated? Urine Glucose 09/06/24 09/06/24 10:43 13:25 WBC RBC Hgb Hct MCV MCH MCHC RDW Plt Count MPV Immature Gran % Neutrophils % Lymphocytes % Monocytes % Eosinophils % Basophils % Nucleated RBC % Absolute Neutrophils Absolute Lymphocytes Absolute Monocytes Absolute Eosinophils Absolute Basophils VBG Lactate 1.1 Sodium Potassium Chloride Carbon Dioxide Anion Gap BUN Creatinine Est GFR (CKD-EPI 2020) Glucose Calcium Magnesium Total Bilirubin AST ALT Alkaline Phosphatase Ammonia Creatine Kinase Troponin I Total Protein Albumin Lipase Procalcitonin < 0.10 TSH Urine Color Yellow Urine Clarity Clear Urine pH 7.0 Ur Specific [place] 1.010 Urine Protein Negative Urine Ketones Negative Urine Blood Negative Urine Nitrite Positive H Urine Bilirubin Negative Urine Urobilinogen 0.2 Ur Leukocyte Esterase Negative Urine RBC 0-2 Urine WBC 5-10 Ur Epithelial Cells Rare Urine Crystals Negative Urine Bacteria Moderate Urine Casts Negative Urine Mucus Negative Ur Culture Indicated? Yes Urine Glucose Negative Last Vital Signs Temp 37 C 09/06/24 13:40 Pulse 107 H 09/06/24 13:40 Resp 14 09/06/24 13:40 BP 158/97 H 09/06/24 13:40 Pulse Ox 94 09/06/24 13:40 Time Spent Time spent with Patient: >75 minutes Time was spent: preparing to see the patient(eg.review tests), obtaining and/or reviewing separately otained hiistory, ordering medications,tests, procedures, referring, communicating with other health critical care physician assistant, indepentently interpreting results, counseling the patient and care coordination
[2024-09-06 21:31] LABS: Anion Gap 4.8 mmol/L (3-11); BUN 5 mg/dL (7-18); CO2 30.2 mmol/L (21.0-32.0); CREATININE 0.7 mg/dL (0.55-1.02); Calcium 8.3 mg/dL (8.5-10.1); Chloride 106 mmol/L (98-107); Estimated GFR 92.98 (mL/min/1.73m2); Glucose 107 mg/dL (74-106); Potassium 3.4 mmol/L (3.5-5.1); Sodium 141 mmol/L (136-145)
[2024-09-06] MEDS: Enoxaparin 40 MG/0.4 ML SYR SC (21:43)
[2024-09-06] MEDS: levETIRAcetam 500 MG in Normal Saline 100 ML 400 MG IVPB (21:43)
[2024-09-06] MEDS: Normal Saline Flush 10 ML SYR IVP (21:44)
[2024-09-06] MEDS: POTASSIUM CHLORIDE 20 MEQ/100 ML BAG 50 MEQ IV_INF (22:30)
--- NOTE | 2024-09-07 03:45 | NUR.NOTE ---
Nursing Note: Arsenio Petersen RN from ICU noted that pt had a 3-4 second run of SVT at 160bpm. Pt remains catatonic, minimal response to painful stimuli. She is moving her body in slight enrike movements throughout the shift. respirations are even and unlabored.
[2024-09-07 07:25] LABS: Anion Gap 8.2 mmol/L (3-11); BUN 4 mg/dL (7-18); CO2 27.8 mmol/L (21.0-32.0); CREATININE 0.8 mg/dL (0.55-1.02); Calcium 8.6 mg/dL (8.5-10.1); Chloride 107 mmol/L (98-107); Estimated GFR 79.22 (mL/min/1.73m2); Glucose 95 mg/dL (74-106); Potassium 3.6 mmol/L (3.5-5.1); Sodium 143 mmol/L (136-145)
[2024-09-07 07:45] VITALS: BP 124/64; PULSE 86; RESP 16; TEMP 37.8; O2SAT 93
[2024-09-07 09:14] VITALS: TEMP 37
[2024-09-07] MEDS: cefTRIAXone 2 GM/50 ML BAG IVPB (09:14)
[2024-09-07] MEDS: Normal Saline Flush 10 ML SYR IVP ×7 (09:19→23:14)
[2024-09-07] MEDS: Enoxaparin 40 MG/0.4 ML SYR SC ×2 (09:19→20:53)
--- NOTE | 2024-09-07 10:05 | INITIAL_ITS ---
Date of service: 09/07/24 Time of Service: 10:05 Care Management Initial Assmt Initial Assessment Reason for Hospitalization: Pneumonia Functional Status/Living Situation Patient Presentation: Eric was lying in bed with her eyes closed each time (3) CM attempted to meet with her. She was not arousable to voice or gentle touch. Per nursing, she has been sleeping all day. If she responds at all it is with a short one word answer. She has not been eating or drinking and a shaw catheter was inserted today. Eric resides at [facility]. She was transferred there from [facility] at the beginning of July. She has a long psychiatric history which includes the diagnoses of schizophrenia, dementia and psychotic depression and has had 2 hospital stays at [facility], the first being from 04/04/24 to 04/28/24. In between the [address] [facility] admissions, she was also hospitalized at [facility] emily-psych unit, also in [place]. Eric had been living at [facility] prior to her admission to [facility] but it was determined that she needed a higher level of care as she was not eating or drinking or allowing needed care to be performed. She requires assistance with ASDLs and uses a wheelchair much of the time. She is and has 2 sons. Her brother Karl is her DPOA and HCA. Town of Residence: [place] Resides with: Other (SNF) Significant Other/Family: [facility] Employment Status: Unemployed Instrumental Activities of Daily Living (ADLs): Requires support (ADLs ) with Business Strategy Manager Medications Medication Management: No Issues/Barriers identified Physical Functioning/Mobility Assistive Device: wheelchair and walker Advance Directives Advance Directives: Do you have an Advance Directive: AD On File at [facility]: N 09/06/24 08:57 Date Asked 09/06/24 09/06/24 08:57 AD Date Reviewed COLST On File at [facility] No 09/06/24 12:11 COLST Date Scanned Code Status Resuscitation Status DNR/DNI Portal Pt does not currently have a portal and education provided: No Insurance Coverage/Financial Issues Insurance: Medicare Medicaid Care Team Visit Care Team Role Provider Type Dorothy Kauffman NP MD [facility] STAFF PHYSICIAN [place] Primary Care Provider NON-[facility] STAFF PHYSICIAN SLOAEN Gauthier Emergency Provider [employer] Pankaj Zamora Admit Provider [facility] STAFF PHYSICIAN Attending Provider Discharge Potential Discharge Needs: Other (return to [facility]) Anticipated Barriers to Discharge: None Identified Patient/Family Education Needs: Review discharge instructions, discuss Ask Me Three Transportation: RCT Plan: Anticipate Dori will be transferred back to [facility] when medically cleared. She will follow up with the facility providers and plan of care and transport via RCT. CM will follow and continue to support discharge planning efforts. Social Determinants of Health Screening Will the Patient Participate in the Screening?: Unable to obtain PFSH All Active Problems (Updated 09/06/24 @ 20:11 by Jacquelin Addison APRN) Encephalopathy (Acute) Discharge planning issues (Acute) On deep vein thrombosis (DVT) prophylaxis (Acute) Hypokalemia (Acute) Right lower lobe pneumonia (Acute) Urinary tract infection (Acute) Witnessed seizure-like activity (Acute) Vasomotor rhinitis (Acute) Medical History (Updated 09/06/24 @ 20:11 by Jacquelin Addison APRN) Schizophrenia Psychotic disorder Fracture of multiple pubic rami Fracture of humeral head, left, closed Surgical History (Updated 02/24/23 @ 15:37 by Shereen Nguyen) History of arthroplasty of left shoulder Hx of appendectomy Social History Smoking/Tobacco Use Status: Never Smoking risk assessment performed?: Yes Alcohol Intake: never Substance use type: does not use Housing: [facility]
[2024-09-07] MEDS: POTASSIUM CHLORIDE 10 MEQ/100 ML BAG 100 MEQ IV_INF ×3 (10:15→13:34)
[2024-09-07] MEDS: levETIRAcetam 500 MG in Normal Saline 100 ML 400 MG IVPB ×2 (11:33→23:14)
[2024-09-07 11:35] VITALS: BP 133/72; PULSE 81; RESP 20; TEMP 36.9; O2SAT 95
--- NOTE | 2024-09-07 13:42 | NUR.NOTE ---
[facility] 10MeQ bag 3 of 3 hung at 13:42 witnessed by Isabel Gallagher, RN Nursing Note:
--- NOTE | 2024-09-07 15:02 | PHA.REVIEW2 ---
Pharmacy Admission Review Admission Clinical Review Admission Pharmacy Review: Encephalopathy (Acute) Discharge planning issues (Acute) On deep vein thrombosis (DVT) prophylaxis (Acute) Hypokalemia (Acute) Right lower lobe pneumonia (Acute) Urinary tract infection (Acute) Witnessed seizure-like activity (Acute) erythromycin base Allergy (Verified 06/24/23 14:20) unknown Resuscitation Status DNR/DNI Height 4 ft 9 in Weight 47.9 kg Pharmacy Admission Review Renal Dosing Renal Dosing: BUN 4 mg/dL (7-18) L 09/07/24 06:05 Creatinine 0.8 mg/dL (0.55-1.02) 09/07/24 06:05 Medications needing adjustments: Reviewed Anticoagulation Anticoagulation: Hgb 11.0 g/dL (11.2-15.7) L 09/06/24 08:53 Hct 33.6 % (36.0-46.0) L 09/06/24 08:53 Plt Count 313 10^3/uL (130-400) 09/06/24 08:53 Creatinine 0.8 mg/dL (0.55-1.02) 09/07/24 06:05 Therapeutic Anticoagulation: Reviewed (pt w/ history of DVT) Opiate Usage Evaluate Pain Scale/Pains Meds: N/A Relevant Labs Relevant Labs: Sodium 143 mmol/L (136-145) 09/07/24 06:05 Potassium 3.6 mmol/L (3.5-5.1) 09/07/24 06:05 Chloride 107 mmol/L (98-107) 09/07/24 06:05 Magnesium 1.9 mg/dL (1.8-2.4) 09/06/24 08:53 Electrolytes, C-Reactive P, ESR: Reviewed DM Control DM Control: Reviewed Cardiac Review Cardiac Review: Troponin I 12 ng/L (<or=51) 09/06/24 10:00 BP, HR, EF%: Reviewed QTc Review QTc: N/A IV to PO Switch IV Medications: Reviewed Home Meds Home Med List reviewed: Reviewed Current Meds Current Medication Order Review: Reviewed Pharmacy Antibiotic Review Pharmacy Antibiotic Activity: Abx regimen adjustment Comments: adjust CTX/doxycline to zosyn to cover for HAP and UTI (GNR growing so far), MRSA swab ordered to r/o mrsa-not starting vanco at this time since pt isn't in ICU. Recommended zosyn IV over 30 mins because of incompatibility with IV keppra. SOAP SOAP: pt with new onset seizures-started on keppra IV. Possibly d/t to starting Invega (Hyperkinetic muscle activity (IM: 4% to 5%; oral: 4% to 17% incidence). Plan: monitor cultures for culture/sensitivities.
[2024-09-07] MEDS: PIPERACILLIN/TAZO 3.375 GM in Normal Saline 50 ML IVPB ×2 (15:30→20:53)
[2024-09-07 15:49] VITALS: BP 121/74; PULSE 69; RESP 20; TEMP 36.9; O2SAT 95
[2024-09-07] MEDS: Lactated Ringers 1,000 ML 50 ML IV (16:17)
--- NOTE | 2024-09-07 17:40 | PGE_ITS ---
Date of Service Date of service: 09/07/24 Time of Service: 17:40 Assessment and Plan Assessment and plan (1) Witnessed seizure-like activity: Status: Acute Assessment and plan: Improved over night, no MRI ordered. No sezures Plant to return to the [facility] on Tuesday if continues to be stable and improving. (2) Right lower lobe pneumonia: Status: Acute Assessment and plan: As per chest imaging DC ceftriaxone (decreases sz threshold) started on Zosyn q6h /30 as to not interfere with IV Keppra dosing/time Blood cultures pending (3) Urinary tract infection: Status: Acute Assessment and plan: Zoxyn (4) Schizophrenia: Assessment and plan: Was treated with Abilify since been changed to paliperidone IM every month Will need to continue this therapy if her due date is met while she in hospital versus change in therapy needed. Open await records from recent stay at [facility] to tailor plan Consider psych consult if deemed necessary (5) Hypokalemia: Status: Acute Assessment and plan: K 3.4 - repleted, trend Telemetry (6) On deep vein thrombosis (DVT) prophylaxis: Status: Acute Assessment and plan: ON LMWH treatment dose for DVT Enoxaparin 40 mg BID - being treated for DVT/PE since 06/27/24 For unprovoked clot - 6 months or greater Unable to take oral - continue enoxaparin. (7) Discharge planning issues: Status: Acute Assessment and plan: D/c to the [facility] when stable Discussed with Dr. Stinson Subjective Subjective Patient reports: no new complaints, tolerating liquids well, voiding w/o difficulty (shaw), bowel movement and afebrile; denies no flatus, flatus, diarrhea, nausea, vomiting, shortness of breath or fever Interval history since last seen: Answers some questions, mostly sleeping Exam Narrative Exam Narrative: GENERAL APPEARANCE: Frail, thin, flat in bed, mostly sleeping SKIN: Warm, pink, dry, intact, without rashes/lesions/ulcerations. HEAD: Normocephalic, atraumatic-no [place] sign, no periorbital ecchymosis, normal hair distribution for gender/age. EYES: Normal conjunctiva, no exudates on lids/lashes, pupils PERRLA ENT: Nares patent, no circumoral cyanosis, no facial swelling NECK: Supple, trachea midline, painless cervical ROM, no nuchal rigidity. LUNGS/CHEST: Lungs CTA bilaterally-no rhonchi/rales/wheezes diffusely, non- labored respirations, normal A/P diameter, symmetrical expansion, no chest wall deformity HEART (CV/PV): Regular rate and rhythm without murmur, no peripheral edema, no JVD. ABDOMEN: Soft, non-distended, no guarding, no ecchymosis or rigidity or tenderness. MSK: Normal ROM, no swelling/deformity to bilateral UEs or LEs, moving all extremities without weakness, no cyanosis, spine midline without tenderness, normal curvature. NEURO: Mental Status flat , but again mostly sleeping No facial droop, no forehead involvement. Motor: No focal weakness - strength 5/5 in bilateral UEs and LEs, proximal and distal, symmetric, able to squeeze my hand Sensory: sensation intact to light touch globally. PSYCH: Eyes open, occasional following of spontaneous events, mumbling, at baseline Objective Last Vital Signs Temp 36.9 C 09/07/24 15:49 Pulse 69 09/07/24 15:49 Resp 20 09/07/24 15:49 BP 121/74 09/07/24 15:49 Pulse Ox 95 09/07/24 15:49 Laboratory Results - last 24 hr 09/06/24 09/06/24 09/07/24 21:12 22:00 06:05 Sodium 141 Cancelled 143 Potassium 3.4 L Cancelled 3.6 Chloride 106 Cancelled 107 Carbon Dioxide 30.2 Cancelled 27.8 Anion Gap 4.8 Cancelled 8.2 BUN 5 L Cancelled 4 L Creatinine 0.7 Cancelled 0.8 Est GFR (CKD-EPI 2020) 92.98 Cancelled 79.22 Glucose 107 H Cancelled 95 Calcium 8.3 L Cancelled 8.6 Time Spent with Patient Time Spent with Patient: 25-34 minutes Time was spent: preparing to see the patient(eg.review tests), ordering medications,tests, procedures, referring, communicating with other health residential care officer, indepentently interpreting results, counseling the patient and care coordination
[2024-09-07 19:20] VITALS: BP 149/88; PULSE 77; RESP 16; TEMP 36.4; O2SAT 95
[2024-09-07 23:12] LABS: MRSA PCR Negative (Negative)
[2024-09-08 02:51] VITALS: BP 125/75; PULSE 57; RESP 18; TEMP 36.4; O2SAT 92
[2024-09-08] MEDS: Normal Saline Flush 10 ML SYR IVP (03:07)
[2024-09-08] MEDS: PIPERACILLIN/TAZO 3.375 GM in Normal Saline 50 ML IVPB ×3 (03:07→13:24)
[2024-09-08 06:32] LABS: Abs Immature Grans 0.01 10^3/uL (0.0-0.06); Absolute Basophil Count 0.04 10^3/uL (0.0-0.2); Absolute Eosinophil Count 0.31 10^3/uL (0.0-0.7); Absolute Lymphocyte Count 0.81 10^3/uL (1.2-3.4); Absolute Monocyte Count 0.33 10^3/uL (0.1-0.8); Absolute Neutrophil Count 3.61 10^3/uL (1.2-6.7); Basophils % 0.8 %; Eosinophils % 6.1 %; HCT 27.3 % (36.0-46.0); HGB 9.1 g/dL (11.2-15.7); Immature Grans % 0.2 %; Lymphocytes % 15.9 %; MCH 29.2 pg (27.0-33.0); MCHC 33.3 % (32.0-36.0); MCV 88 fL (80-95); MPV 10.6 fL (8.0-11.0); Monocytes % 6.5 %; Neutrophils % 70.5 %; Platelet Count 262 10^3/uL (130-400); RBC 3.12 10^6/uL (3.93-5.22); RDW 13.1 % (11.7-14.6); RDW-SD 41.6 fL; WBC 5.11 10^3/uL (4.4-10.8)
[2024-09-08 06:56] LABS: Anion Gap 5.4 mmol/L (3-11); BUN 4 mg/dL (7-18); CO2 30.6 mmol/L (21.0-32.0); CREATININE 0.8 mg/dL (0.55-1.02); Calcium 8.2 mg/dL (8.5-10.1); Chloride 107 mmol/L (98-107); Estimated GFR 79.22 (mL/min/1.73m2); Glucose 80 mg/dL (74-106); Magnesium 1.9 mg/dL (1.8-2.4); Sodium 143 mmol/L (136-145)
[2024-09-08 07:26] VITALS: BP 145/68; PULSE 67; RESP 16; TEMP 36.5; O2SAT 96
[2024-09-08] MEDS: Enoxaparin 40 MG/0.4 ML SYR SC (07:37)
--- NOTE | 2024-09-08 08:30 | NUR.NOTE ---
Nursing Note: pt noted to be more alert today. able to speak and converse w/ RN. long sentences garbled, unsure if that is patient baseline. pt able to verbalize hunger and thirst and need to get out of bed. Pt currently sitting upright in bed watching TV independently drinking milkshake. Calm at this time. AP RN
[2024-09-08] MEDS: levETIRAcetam 500 MG in Normal Saline 100 ML 400 MG IVPB (10:06)
--- NOTE | 2024-09-08 10:59 | CMDISCH_ITS ---
Date of service: 09/08/24 Time of Service: 10:59 LACE Index Scoring Tool Questions: Length of Stay (in days): 2 Was the patient admitted via the E.D.?: Yes E.D. Visits: 1 Answers: Total Score: 6 Risk of Readmission: Low Risk Care Management Discharge Plan Reason for Hospitalization: New seizure Discharge Plan: Dori will be transferred back to [facility] today. She will follow up with the facility providers, follow up with neurology, have an EEG and plan of care. She will transport via [facility]. Patient/Family Education Needs: Review of discharge instructions, activity, limitation, and plan of care. Discuss Ask Me Three. Services Needed at Discharge: Long Term Facility SDOH Health Related Social Needs: No Data to Display
[2024-09-08 11:09] VITALS: BP 144/80; PULSE 80; RESP 18; TEMP 36.4; O2SAT 96
--- NOTE | 2024-09-08 11:31 | W.PM.PROGNOT ---
Date of Service Date of service: 09/08/24 Time of Service: 11:31 Assessment and Plan Assessment and plan (1) Witnessed seizure-like activity: Status: Acute Assessment and plan: in setting of UTI No seizures observed and now at baseline. EEG unavailable this week. continue keppra outpatient neurology consultation (2) Urinary tract infection: Status: Acute Assessment and plan: klebsiella pneumonia UTI can downstep to augmentin based on cultures day 3/ (3) Right lower lobe pneumonia: Status: Acute Assessment and plan: asymptomatic, found on chest imaging DCd ceftriaxone (decreases sz threshold) and was started on Zosyn q6h /30 as to not interfere with IV Keppra dosing/time no oxygen requirements or cough, will downstep to augmentin day 3 while cultures/labs pending Blood cultures pending (4) Schizophrenia: Assessment and plan: Was treated with Abilify since been changed to paliperidone IM every month Will need to continue this therapy if her due date is met while she in hospital versus change in therapy needed. Open await records from recent stay at [facility] to tailor plan Consider psych consult if deemed necessary (5) Hypokalemia: Status: Acute Assessment and plan: K 3.4 on admission, now 4.0 after repletion (6) On deep vein thrombosis (DVT) prophylaxis: Status: Acute Assessment and plan: ON LMWH treatment dose for DVT Enoxaparin 40 mg BID - being treated for DVT/PE since 06/27/24 For unprovoked clot - 6 months or greater Unable to take oral - continue enoxaparin. (7) Discharge planning issues: Status: Acute Assessment and plan: [facility] declined discharge of patient today. Discussed with Dr. Stinson Subjective Subjective Patient reports: no new complaints, feels better, tolerating liquids well, tolerating a regular diet and afebrile; denies shortness of breath Interval history since last seen: Patient has back to her baseline she is hemodynamically stable, visitors at bedside confirm she is at her baseline Objective Last Vital Signs Temp 36.4 C L 09/08/24 11:09 Pulse 80 09/08/24 11:09 Resp 18 09/08/24 11:09 BP 144/80 H 09/08/24 11:09 Pulse Ox 96 09/08/24 11:09 Laboratory Results - last 24 hr 09/07/24 09/08/24 21:05 05:58 WBC 5.11 RBC 3.12 L Hgb 9.1 L Hct 27.3 L MCV 88 MCH 29.2 MCHC 33.3 RDW 13.1 Plt Count 262 MPV 10.6 Immature Gran % 0.2 Neutrophils % 70.5 Lymphocytes % 15.9 Monocytes % 6.5 Eosinophils % 6.1 Basophils % 0.8 Nucleated RBC % 0.0 Absolute Neutrophils 3.61 Absolute Lymphocytes 0.81 L Absolute Monocytes 0.33 Absolute Eosinophils 0.31 Absolute Basophils 0.04 Sodium 143 Potassium 4.0 Chloride 107 Carbon Dioxide 30.6 Anion Gap 5.4 BUN 4 L Creatinine 0.8 Est GFR (CKD-EPI 2020) 79.22 Glucose 80 Calcium 8.2 L Magnesium 1.9 MRSA (TEM-PCR) Negative Time Spent with Patient Time Spent with Patient: 35-49 minutes Time was spent: preparing to see the patient(eg.review tests), obtaining and/or reviewing separately otained hiistory, ordering medications,tests, procedures, indepentently interpreting results and care coordination
--- NOTE | 2024-09-08 11:42 | CMPROGNOTE_ITS ---
Date of service: 09/08/24 Time of Service: 11:42 Care Management Progress Note Progress Note Text Progress Note Text: Dori is medically ready for discharge today. CM contacted [facility] to arrange her return; [facility] declined to accept her back, for 48 hours citing no administration in house on weekends, as the reason. Therefore Dori will remain at [facility] until Tuesday. Discharge Potential Discharge Needs: PCP F/U Appt and Other (neurology, EEG ) Anticipated Barriers to Discharge: Other (The [place] Refused her back until Tuesday per Candi (RN at the 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 on Tuesday and is medically cleared today. She will follow up with the facility providers, and plan of care. She transport via [facility]. CM will follow and continue to support discharge planning efforts. Social Determinants of Health Screening Will the Patient Participate in the Screening?: Unable to obtain
[2024-09-08 14:45] VITALS: BP 156/79; PULSE 77; RESP 18; TEMP 37.3; O2SAT 92
--- NOTE | 2024-09-08 14:57 | NUR.NOTE ---
Nursing Note: Patient refuses to keep telemetry on, provider notified, request to have Tele D/C. RN attempted to educate patient on importance of continuous heart monitoring. patient not understanding. AP RN
[2024-09-08 19:29] VITALS: BP 150/86; PULSE 85; RESP 20; TEMP 37; O2SAT 95
[2024-09-08] MEDS: levETIRAcetam 250 MG TAB 500 MG PO (19:54)
--- NOTE | 2024-09-08 21:34 | NUR.NOTE ---
Patient refused meds. She kept trying to place pills in chocolate shake. Keppra crushed nd placed in applesauce but patient spit oy augmentin . and then refused lovenox.Nursing Note:
[2024-09-08 22:36] LABS: Legionella Ag Detection Urine Negative (Negative)
[2024-09-09 07:42] VITALS: BP 150/82; PULSE 77; RESP 18; TEMP 36.8; O2SAT 96
[2024-09-09] MEDS: Normal Saline Flush 10 ML SYR IVP (08:21)
[2024-09-09] MEDS: Amoxicillin 875/Clav. 125 TAB PO ×2 (08:21→20:13)
[2024-09-09] MEDS: levETIRAcetam 250 MG TAB 500 MG PO ×2 (08:21→20:13)
[2024-09-09] MEDS: Enoxaparin 40 MG/0.4 ML SYR SC ×2 (08:21→20:17)
--- NOTE | 2024-09-09 10:56 | PGE_ITS ---
Date of Service Date of service: 09/09/24 Time of Service: 10:56 Assessment and Plan Assessment and plan (1) Witnessed seizure-like activity: Status: Acute Assessment and plan: in setting of UTI No seizures observed and now at baseline. EEG unavailable this week. continue [facility] outpatient neurology consultation (2) Urinary tract infection: Status: Acute Assessment and plan: klebsiella pneumonia UTI can downstep to augmentin based on cultures day 4/ (3) Right lower lobe pneumonia: Status: Acute Assessment and plan: asymptomatic, found on chest imaging no oxygen requirements or cough, augmentin day 4/5 while final cultures/labs pending Blood cultures pending (4) Schizophrenia: Assessment and plan: Was treated with Abilify since been changed to paliperidone IM every month Will need to continue this therapy if her due date is met while she in hospital versus change in therapy needed. Open await records from recent stay at [facility] to tailor plan Consider psych consult if deemed necessary (5) Hypokalemia: Status: Acute Assessment and plan: K 3.4 on admission, now 4.0 after repletion (6) On deep vein thrombosis (DVT) prophylaxis: Status: Acute Assessment and plan: ON LMWH treatment dose for DVT Enoxaparin 40 mg BID - being treated for DVT/PE since 06/27/24 For unprovoked clot - 6 months or greater Unable to take oral - continue enoxaparin. (7) Discharge planning issues: Status: Acute Assessment and plan: No[facility] declined discharge of patient so will continue to be held here until Tuesday Discussed with Dr. Stinson Subjective Subjective Patient reports: no new complaints, tolerating liquids well, tolerating a regular diet and afebrile; denies shortness of breath Interval history since last seen: remains hemodynamically stable with no seizure like activity. is eating and drinking and remains at her baseline. medically stable for discharge, awaiting acceptance from the [facility] to discharge Exam Const General: cooperative, comfortable and no acute distress Nutritional Appearance: average body habitus Orientation: alert and awake [facility] Head: normal to inspection, normocephalic and atraumatic Mouth: oral mucosae normal Neck Neck: normal visual inspection and full ROM Chest Chest: normal inspection of the chest Resp Effort & Inspection: normal respiratory effort Cardio Rate: regular rate Rhythm: regular rhythm GI Inspection: normal to inspection Palpation: soft Skin General skin exam: no rashes or lesions noted Neuro General: patient alert and patient awake Extrem General: normal to inspection, full ROM and no pedal edema Objective Last Vital Signs Temp 36.8 C 09/09/24 07:42 Pulse 77 09/09/24 07:42 Resp 18 09/09/24 07:42 BP 150/82 H 09/09/24 07:42 Pulse Ox 96 09/09/24 07:42 Time Spent with Patient Time Spent with Patient: 35-49 minutes Time was spent: preparing to see the patient(eg.review tests), obtaining and/or reviewing separately otained hiistory, ordering medications,tests, procedures and indepentently interpreting results
[2024-09-09 16:24] LABS: Streptococcus Pneumoniae Ag, U Negative (Negative)
[2024-09-09 19:41] VITALS: BP 140/85; PULSE 88; RESP 18; TEMP 36.5; O2SAT 97
[2024-09-10 07:19] VITALS: BP 125/76; PULSE 72; RESP 16; TEMP 36.9; O2SAT 95
[2024-09-10] MEDS: Amoxicillin 875/Clav. 125 TAB PO (08:32)
[2024-09-10] MEDS: levETIRAcetam 250 MG TAB 500 MG PO (08:33)
[2024-09-10] MEDS: Enoxaparin 40 MG/0.4 ML SYR SC (08:33)
--- NOTE | 2024-09-10 10:27 | DSE_ITS ---
Date of service: 09/10/24 Time of Service: 10:28 DS: Diagnosis Discharge Diagnosis (1) Witnessed seizure-like activity: Status: Acute (2) Urinary tract infection: Status: Acute (3) Right lower lobe pneumonia: Status: Acute (4) Hypokalemia: Status: Resolved Discharge Plan Disposition [facility] Condition: Stable Discharge Details Reason For Visit: new seizure Admit Date/Time: 09/08/24 13:06 Admit Provider: Pankaj Zamora Attending Provider: Pankaj Zamora Primary Care Provider: [facility] Hospital Course Hospital Course: Primary Diagnosis: * Witnessed seizure-like activity, acute * Likely causes include catatonia versus true seizure in the setting of recent switch from aripiprazole to paliperidone. * Patient demonstrated spasticity and altered mental status with some improvement following lorazepam administration, suggesting catatonia. * Due to recurrence of symptoms, Keppra loading was initiated. * Neurology recommended against EEG or MRI at this time * CTA of the head and neck showed no acute findings. * No seizure activity observed during admission; patient now at neurologic baseline. * EEG not available this week. * Continue Keppra. Secondary Diagnoses and Hospital Course: * Encephalopathy, acute * Likely multifactorial, possibly postictal, catatonic, or infectious in origin. * Ammonia result did not indicate hepatic cause. * Patient received IV hydration * Right lower lobe pneumonia, acute * Asymptomatic finding on imaging. * No oxygen requirement, no cough. * Continue Augmentin * Blood cultures negative at 72h . * Urinary tract infection, acute * Culture-confirmed Klebsiella pneumoniae. * Afebrile, tolerating oral intake. * Continue Augmentin, now on day 5 of 7. * Schizophrenia * Medication transitioned from aripiprazole to paliperidone IM. * Psychiatry consult to be considered if symptoms persist. * Hypokalemia, acute * Potassium was 2.8 on arriva - 4.0 on discharge * Replaced both orally and intravenously. * No further supplementation needed at this time. * Recommend BMP in one week * Deep vein thrombosis * On therapeutic enoxaparin 40 mg BID for DVT/PE since 06/27/24. * Indication: unprovoked clot, continuing >= months. * Unable to take oral anticoagulants - continue enoxaparin * Discharge planning * Return to [facility] Pertinent Labs & Imaging: * UA: Positive for nitrite, moderate bacteria * Chest X-ray: Right lower lobe infiltrate Medication Summary: Home Meds: * Aripiprazole 5 mg PO daily (discontinued) * Enoxaparin 40 mg SC BID * Paliperidone palmitate 117 mg IM Q30D Allergies: * Erythromycin base ? reaction unknown Medical History: * Schizophrenia * Psychotic disorder * Fracture of multiple pubic rami * Left humeral head fracture * Left shoulder arthroplasty * Appendectomy * Vasomotor rhinitis Social History: * Resident of [facility] * Never smoked * No alcohol or illicit drug use Recommendations on Discharge: * Return to [facility] * Patient medically stable for discharge. * Continue Keppra * Continue Augmentin * Arrange outpatient neurology consultation. * Monitor mental status; consider MRI if no improvement * Ensure psychiatry follow-up and medication reconciliation with outside records * Recommend BMP in 1 week Home Meds and New Rx's Prescriptions: New levetiracetam 250 mg Tablet 500 mg PO BID Qty: 60 0RF amoxicillin-pot clavulanate 875-125 mg Tablet 1 tab PO BID Qty: 7 0RF Continued enoxaparin 40 mg/0.4 mL syringe 40 mg subcut BID Erzofri 117 mg/0.75 mL syringe 117 mg IM Q30D Held aripiprazole 5 mg tablet 5 mg PO DAILY Hold Instructions: Had been discontinued to help patient please discussed with PCP Discharge Instructions Instructions: Pneumonia in adults, Seizures, Urinary Tract Infection, Adult ED Additional Instructions: Complete 3 more days of Augmentin as directed this will complete a course for your Klebsiella UTI and your right lower lobe pneumonia. Continue Keppra 500 mg twice daily until evaluated by neurology Primary Care Provider: within 1 week Neurology (Outpatient): within 2?4 weeks for follow-up Psychiatry: as arranged by nursing facility Lab Monitoring: as needed per facility protocol (potassium, renal function) Activity: * Resume normal activities as tolerated * Use assistance with mobility as needed * Fall precautions in place Diet: * Return to previous diet * Stay well-hydrated Referrals: [facility] [Primary Care Provider] - (1-2 weeks s/p hospitalization for sz, pna, uti) Activity:: Activity as Tolerated Equipment/Supplies:: No Equipment Needed Diet:: As Tolerated DS: Summary Time Spent with Patient providing and/or coordinating discharge services: Greater than 30 minutes Status at Discharge Functional status at discharge: wheelchair bound Overall status at discharge: patient is progressing back to baseline Mental Status: other Speech and Movement: other Mood: other Affect: blunted Quality:SDOH Health Related Social Needs: No Data to Display Exam Const General: cooperative, comfortable and no acute distress Nutritional Appearance: average body habitus Orientation: alert and awake [facility] Head: normal to inspection, normocephalic and atraumatic Mouth: oral mucosae normal Neck Neck: normal visual inspection and full ROM Chest Chest: normal inspection of the chest Resp Effort & Inspection: normal respiratory effort Cardio Rate: regular rate Rhythm: regular rhythm GI Inspection: normal to inspection Palpation: soft Skin General skin exam: no rashes or lesions noted Neuro General: patient alert and patient awake Extrem General: normal to inspection, full ROM and no pedal edema Psych Mental Status: other Speech and Movement: other Mood: other Affect: blunted DS: Data Vitals/I&O Vitals and I&O: Vital Signs Temperature 36.9 C 09/10/24 07:19 Temperature Source Temporal Artery Scan 09/10/24 07:19 Pulse 72 09/10/24 07:19 Pulse Rhythm Regular 09/06/24 13:40 Pulse 118 H 09/06/24 13:01 Respiratory Rate 16 09/10/24 07:19 Respiratory Effort Normal, Non-Labored 09/06/24 13:40 Respiratory Depth Shallow 09/06/24 13:40 Respiratory Pattern Normal 09/06/24 13:40 Blood Pressure 125/76 09/10/24 07:19 Blood Pressure Mean 92 09/10/24 07:19 Pulse Oximetry 95 09/10/24 07:19 Oxygen Delivery Method Room Air 09/10/24 07:19 Oxygen Flow Rate 0 09/10/24 07:19 Pain Level 0 09/08/24 19:29 Comment rn notified 09/09/24 07:42 Intake & Output 09/09/24 09/09/24 09/10/24 11:59 23:59 11:59 Intake Total 200 / 580 380 / 580 240 / 240 Balance 200 / 580 380 / 580 240 / 240 Intake: Oral 200 / 580 380 / 580 240 / 240 Other: Urine Color Yellow Yellow Pale Yellow Urine Appearance Clear Clear Clear Urine Odor Normal None None Comment large wet diaper Pt dry at this time. Data Completed and Pending Labs on day of discharge: Labs from last 24 hours 09/07/24 21:45: Urine Legionella Ag Negative 09/07/24 14:55: Ur Strep pneumoniae Ag Negative Preliminary micro results at discharge 09/06/24 10:00 Blood Blood Culture - Preliminary NO GROWTH 72 HOURS 09/06/24 08:58 Blood Blood Culture - Preliminary NO GROWTH 72 HOURS PFSH All Active Problems (Updated 09/10/24 @ 10:32 by Dorothy Kauffman NP) Encephalopathy (Acute) Discharge planning issues (Acute) On deep vein thrombosis (DVT) prophylaxis (Acute) Right lower lobe pneumonia (Acute) Urinary tract infection (Acute) Witnessed seizure-like activity (Acute) Vasomotor rhinitis (Acute) Medical History (Updated 09/10/24 @ 10:32 by Dorothy Kauffman NP) Schizophrenia Psychotic disorder Fracture of multiple pubic rami Fracture of humeral head, left, closed Surgical History (Updated 02/24/23 @ 15:37 by Shereen Nguyen) History of arthroplasty of left shoulder Hx of appendectomy Social History Smoking/Tobacco Use Status: Never Smoking risk assessment performed?: Yes Alcohol Intake: never Substance use type: does not use Housing: [facility] Time Spent with Patient Time Spent with Patient: 45-69 minutes Time was spent: preparing to see the patient(eg.review tests), ordering medications,tests, procedures, referring, communicating with other health team primary care physician, indepentently interpreting results, counseling the patient and care coordination
--- NOTE | 2024-09-10 10:27 | W.PM.DS.N ---
Date of service: 09/10/24 Time of Service: 10:28 DS: Diagnosis Discharge Diagnosis (1) Witnessed seizure-like activity: Status: Acute (2) Urinary tract infection: Status: Acute (3) Right lower lobe pneumonia: Status: Acute (4) Hypokalemia: Status: Resolved Discharge Plan Disposition Patient Disposition: [facility] Facility(SNF) Condition: Stable Discharge Details Reason For Visit: new seizure Admit Date/Time: 09/08/24 13:06 Admit Provider: Pankaj Zamora Attending Provider: Paknaj Zamora Primary Care Provider: [facility] Hospital Course Hospital Course: Primary Diagnosis: Witnessed seizure-like activity, acute Likely causes include catatonia versus true seizure in the setting of recent switch from aripiprazole to paliperidone. Patient demonstrated spasticity and altered mental status with some improvement following lorazepam administration, suggesting catatonia. Due to recurrence of symptoms, Keppra loading was initiated. Neurology recommended against EEG or MRI at this time CTA of the head and neck showed no acute findings. No seizure activity observed during admission; patient now at neurologic baseline. EEG not available this week. Continue Keppra. Secondary Diagnoses and Hospital Course: Encephalopathy, acute Likely multifactorial, possibly postictal, catatonic, or infectious in origin. Ammonia result did not indicate hepatic cause. Patient received IV hydration Right lower lobe pneumonia, acute Asymptomatic finding on imaging. No oxygen requirement, no cough. Continue Augmentin Blood cultures negative at 72h . Urinary tract infection, acute Culture-confirmed Klebsiella pneumoniae. Afebrile, tolerating oral intake. Continue Augmentin, now on day 5 of 7. Schizophrenia Medication transitioned from aripiprazole to paliperidone IM. Psychiatry consult to be considered if symptoms persist. Hypokalemia, acute Potassium was 2.8 on arriva - 4.0 on discharge Replaced both orally and intravenously. No further supplementation needed at this time. 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 Indication: unprovoked clot, continuing >= months. Unable to take oral anticoagulants - continue enoxaparin Discharge planning Return to [facility] Pertinent Labs & Imaging: UA: Positive for nitrite, moderate bacteria Chest X-ray: Right lower lobe infiltrate Medication Summary: Home Meds: Aripiprazole 5 mg PO daily (discontinued) Enoxaparin 40 mg SC BID Paliperidone palmitate 117 mg IM Q30D Allergies: Erythromycin base ? reaction unknown Medical History: Schizophrenia Psychotic disorder Fracture of multiple pubic rami Left humeral head fracture Left shoulder arthroplasty Appendectomy Vasomotor rhinitis Social History: Resident of [facility] Never smoked No alcohol or illicit drug use Recommendations on Discharge: Return to detention Patient medically stable for discharge. Continue Keppra Continue Augmentin Arrange outpatient neurology consultation. Monitor mental status; consider MRI if no improvement Ensure psychiatry follow-up and medication reconciliation with outside records Recommend BMP in 1 week Home Meds and New Rx's Prescriptions: New levetiracetam 250 mg Tablet 500 mg PO BID Qty: 60 0RF amoxicillin-pot clavulanate 875-125 mg Tablet 1 tab PO BID Qty: 7 0RF Continued enoxaparin 40 mg/0.4 mL syringe 40 mg subcut BID Erzofri 117 mg/0.75 mL syringe 117 mg IM Q30D Held aripiprazole 5 mg tablet 5 mg PO DAILY Hold Instructions: Had been discontinued to help patient please discussed with PCP Discharge Instructions Instructions: Pneumonia in adults, Seizures, Urinary Tract Infection, Adult ED Additional Instructions: Complete 3 more days of Augmentin as directed this will complete a course for your Klebsiella UTI and your right lower lobe pneumonia. Continue Keppra 500 mg twice daily until evaluated by neurology Primary Care Provider: within 1 week Neurology (Outpatient): within 2?4 weeks for follow-up Psychiatry: as arranged by nursing facility Lab Monitoring: as needed per facility protocol (potassium, renal function) Activity: Resume normal activities as tolerated Use assistance with mobility as needed Fall precautions in place Diet: Return to previous diet Stay well-hydrated Referrals: [facility] B[facility]ILLA [Primary Care Provider] - (1-2 weeks s/p hospitalization for sz, pna, uti) Activity:: Activity as Tolerated Equipment/Supplies:: No Equipment Needed Diet:: As Tolerated DS: Summary Time Spent with Patient providing and/or coordinating discharge services: Greater than 30 minutes Status at Discharge Functional status at discharge: wheelchair bound Overall status at discharge: patient is progressing back to baseline Mental Status: other Speech and Movement: other Mood: other Affect: blunted Quality:SDOH Health Related Social Needs: No Data to Display Exam Const General: cooperative, comfortable and no acute distress Nutritional Appearance: average body habitus Orientation: alert and awake HENMT Head: normal to inspection, normocephalic and atraumatic Mouth: oral mucosae normal Neck Neck: normal visual inspection and full ROM Chest Chest: normal inspection of the chest Resp Effort & Inspection: normal respiratory effort Cardio Rate: regular rate Rhythm: regular rhythm GI Inspection: normal to inspection Palpation: soft Skin General skin exam: no rashes or lesions noted Neuro General: patient alert and patient awake Extrem General: normal to inspection, full ROM and no pedal edema Psych Mental Status: other Speech and Movement: other Mood: other Affect: blunted DS: Data Vitals/I&O Vitals and I&O: Vital Signs Temperature 36.9 C 09/10/24 07:19 Temperature Source Temporal Artery Scan 09/10/24 07:19 Pulse 72 09/10/24 07:19 Pulse Rhythm Regular 09/06/24 13:40 Pulse 118 H 09/06/24 13:01 Respiratory Rate 16 09/10/24 07:19 Respiratory Effort Normal, Non-Labored 09/06/24 13:40 Respiratory Depth Shallow 09/06/24 13:40 Respiratory Pattern Normal 09/06/24 13:40 Blood Pressure 125/76 09/10/24 07:19 Blood Pressure Mean 92 09/10/24 07:19 Pulse Oximetry 95 09/10/24 07:19 Oxygen Delivery Method Room Air 09/10/24 07:19 Oxygen Flow Rate 0 09/10/24 07:19 Pain Level 0 09/08/24 19:29 Comment rn notified 09/09/24 07:42 Intake & Output 09/09/24 09/09/24 09/10/24 11:59 23:59 11:59 Intake Total 200 / 580 380 / 580 240 / 240 Balance 200 / 580 380 / 580 240 / 240 Intake: Oral 200 / 580 380 / 580 240 / 240 Other: Urine Color Yellow Yellow Pale Yellow Urine Appearance Clear Clear Clear Urine Odor Normal None None Comment large wet diaper Pt dry at this time. Data Completed and Pending Labs on day of discharge: Labs from last 24 hours 09/07/24 21:45: Urine Legionella Ag Negative 09/07/24 14:55: Ur Strep pneumoniae Ag Negative Preliminary micro results at discharge 09/06/24 10:00 Blood Blood Culture - Preliminary NO GROWTH 72 HOURS 09/06/24 08:58 Blood Blood Culture - Preliminary NO GROWTH 72 HOURS PFSH All Active Problems (Updated 09/10/24 @ 10:32 by Dorothy Kauffman NP) Encephalopathy (Acute) Discharge planning issues (Acute) On deep vein thrombosis (DVT) prophylaxis (Acute) Right lower lobe pneumonia (Acute) Urinary tract infection (Acute) Witnessed seizure-like activity (Acute) Vasomotor rhinitis (Acute) Medical History (Updated 09/10/24 @ 10:32 by Dorothy Kauffman NP) Schizophrenia Psychotic disorder Fracture of multiple pubic rami Fracture of humeral head, left, closed Surgical History (Updated 02/24/23 @ 15:37 by Shereen Nguyen) History of arthroplasty of left shoulder Hx of appendectomy Social History Smoking/Tobacco Use Status: Never Smoking risk assessment performed?: Yes Alcohol Intake: never Substance use type: does not use Housing: detention Time Spent with Patient Time Spent with Patient: 45-69 minutes Time was spent: preparing to see the patient(eg.review tests), ordering medications,tests, procedures, referring, communicating with other health healthcare science specialist, indepentently interpreting results, counseling the patient and care coordination
--- NOTE | 2024-09-10 11:35 | CMDISCH_ITS ---
Date of service: 09/10/24 Time of Service: 11:35 LACE Index Scoring Tool Questions: Length of Stay (in days): 2 Was the patient admitted via the E.D.?: Yes Comorbidities: Dementia E.D. Visits: 1 Answers: Total Score: 9 Risk of Readmission: Low Risk Care Management Discharge Plan Reason for Hospitalization: pneumonia Discharge Plan: Dori will be discharged back to the [facility] where she resides. She will follow up with the facility providers and plan of care and transport via RCT coordinated by CM. Patient/Family Education Needs: Review of discharge instructions, limitations, follow up plan and discuss Ask Me Three Services Needed at Discharge: Shelter Facility SDOH Health Related Social Needs: No Data to Display
== END 2024-09-10 12:24 | disposition skilled nursing facility (03) | DRG 194 ==
LOC: ER 12:33 → MS 13:22
PROVIDERS: Family Medicine; Admitting Provider Family Medicine; Emergency Provider Physician Assistant; PCP Family Medicine; Responsible Provider Nurse Practitioner Family; Visit Provider Family Medicine
DX: J18.9 Pneumonia, unspecified organism (principal); N39.0 Urinary tract infection, site not specified; G93.40 Encephalopathy, unspecified; R56.9 Unspecified convulsions; F20.9 Schizophrenia, unspecified; E87.6 Hypokalemia; E83.42 Hypomagnesemia; R00.0 Tachycardia, unspecified; Z66 Do not resuscitate; R40.2433 Glasgow coma scale score 3-8, at hospital admission; B96.1 Klebsiella pneumoniae [K. pneumoniae] as the cause of diseases classified elsewhere; Z86.718 Personal history of other venous thrombosis and embolism; Z79.01 Long term (current) use of anticoagulants; Z79.899 Other long term (current) drug therapy
CPT/HCPCS: 00123; 36415; 70496; 70498; 80048; 80053; 82550; 83690; 84145; 87040; 87077; 87449; 87641; 93005; 96365; 96366; 96367; 96372; 99285; J1650; 71045; 81003; 81015; 82140; 83605; 83735; 84443; 84484; 85025; 87086; 87186; 87899; 93010; 99223; 99231; 99232; 99233; 99239; G0378; J0696; J1953; J2543; J3475; J3480; J3490

== ENCOUNTER 2024-09-19 18:46 | Outpatient (REF) | payer MEDICARE, MEDICAID, SELFPAY ==
[2024-09-19 18:16] LABS: Abs Immature Grans 0.01 10^3/uL (0.0-0.06); Absolute Basophil Count 0.03 10^3/uL (0.0-0.2); Absolute Lymphocyte Count 1.31 10^3/uL (1.2-3.4); Absolute Monocyte Count 0.47 10^3/uL (0.1-0.8); Absolute Neutrophil Count 5.04 10^3/uL (1.2-6.7); Basophils % 0.4 %; Eosinophils % 2.8 %; HCT 36.7 % (36.0-46.0); HGB 11.3 g/dL (11.2-15.7); Immature Grans % 0.1 %; Lymphocytes % 18.6 %; MCH 28.3 pg (27.0-33.0); MCHC 30.8 % (32.0-36.0); MCV 92 fL (80-95); MPV 10.8 fL (8.0-11.0); Monocytes % 6.7 %; Neutrophils % 71.4 %; Platelet Count 380 10^3/uL (130-400); RDW 13.3 % (11.7-14.6); RDW-SD 44.8 fL; WBC 7.06 10^3/uL (4.4-10.8)
[2024-09-19 18:25] LABS: ALT 21 U/L (14-59); AST 23 U/L (15-37); Albumin 3.6 g/dL (3.4-5.0); Alkaline Phosphatase 137 U/L (46-116); Anion Gap 7.9 mmol/L (3-11); BUN 17 mg/dL (7-18); Bilirubin, Total 0.4 mg/dL (0.2-1.0); CO2 31.1 mmol/L (21.0-32.0); Calcium 9.4 mg/dL (8.5-10.1); Chloride 109 mmol/L (98-107); Estimated GFR 60.61 (mL/min/1.73m2); Glucose 110 mg/dL (74-106); Potassium 4.2 mmol/L (3.5-5.1); Sodium 148 mmol/L (136-145); Total Protein 6.8 g/dL (6.4-8.2)
== END 2024-09-19 18:47 | disposition home or self-care (01) ==
LOC: LBN 18:46
PROVIDERS: PCP Family Medicine; Visit Provider Nurse Practitioner Gerontology
DX: D63.1 Anemia in chronic kidney disease (principal); E87.6 Hypokalemia; E83.00 Disorder of copper metabolism, unspecified
CPT/HCPCS: 80053; 80177; 85025

== ENCOUNTER 2024-09-24 18:05 | Outpatient (REF) | payer MEDICARE, MEDICAID, SELFPAY ==
[2024-09-24 18:31] LABS: ALT 18 U/L (14-59); AST 20 U/L (15-37); Albumin 3.4 g/dL (3.4-5.0); Alkaline Phosphatase 126 U/L (46-116); Anion Gap 7.9 mmol/L (3-11); BUN 15 mg/dL (7-18); Bilirubin, Total 0.4 mg/dL (0.2-1.0); CO2 32.1 mmol/L (21.0-32.0); CREATININE 0.8 mg/dL (0.55-1.02); Chloride 110 mmol/L (98-107); Estimated GFR 79.22 (mL/min/1.73m2); Glucose 124 mg/dL (74-106); Potassium 4.1 mmol/L (3.5-5.1); Sodium 150 mmol/L (136-145); Total Protein 6.4 g/dL (6.4-8.2)
== END 2024-09-24 18:06 | disposition home or self-care (01) ==
LOC: LBN 18:05
PROVIDERS: PCP Family Medicine; Visit Provider Nurse Practitioner Gerontology
DX: E87.6 Hypokalemia (principal)
CPT/HCPCS: 80053

== ENCOUNTER → 2024-10-01 08:43 | Outpatient (BNVA) | payer MEDICARE, MEDICAID, SELFPAY | PROVIDERS: PCP Family Medicine; Referring Provider Family Medicine; Visit Provider Psychiatry & Neurology Neurology | DX: R56.9 Unspecified convulsions (principal); F03.90 Unspecified dementia, unspecified severity, without behavioral disturbance, psychotic disturbance, mood disturbance, and anxiety; F20.9 Schizophrenia, unspecified; F29 Unspecified psychosis not due to a substance or known physiological condition | CPT/HCPCS: 99215; G2212 ==

== ENCOUNTER 2024-10-08 18:26 | Outpatient (REF) | payer MEDICARE, MEDICAID, SELFPAY ==
[2024-10-08 18:52] LABS: ALT 25 U/L (14-59); AST 23 U/L (15-37); Alkaline Phosphatase 119 U/L (46-116); Anion Gap 9.9 mmol/L (3-11); BUN 18 mg/dL (7-18); Bilirubin, Total 0.3 mg/dL (0.2-1.0); CO2 28.1 mmol/L (21.0-32.0); CREATININE 0.8 mg/dL (0.55-1.02); Calcium 8.9 mg/dL (8.5-10.1); Chloride 108 mmol/L (98-107); Estimated GFR 79.22 (mL/min/1.73m2); Glucose 94 mg/dL (74-106); Sodium 146 mmol/L (136-145)
== END 2024-10-08 18:27 | disposition home or self-care (01) ==
LOC: LBN 18:26
PROVIDERS: PCP Family Medicine; Visit Provider Nurse Practitioner Gerontology
DX: E87.8 Other disorders of electrolyte and fluid balance, not elsewhere classified (principal)
CPT/HCPCS: 80053

== ENCOUNTER 2024-11-15 02:56 | Outpatient (CLI) | payer MEDICARE, MEDICAID, SELFPAY | END 2024-11-15 02:57 | disposition home or self-care (01) | LOC: RT 02:56 | PROVIDERS: PCP Family Medicine; Visit Provider Psychiatry & Neurology Neurology | DX: R40.4 Transient alteration of awareness (principal); R94.01 Abnormal electroencephalogram [EEG] | CPT/HCPCS: 95819 ==

== ENCOUNTER → 2024-11-15 15:04 | Outpatient (BNVA) | payer MEDICARE, MEDICAID, SELFPAY | PROVIDERS: PCP Family Medicine; Referring Provider Family Medicine; Visit Provider Psychiatry & Neurology Neurology ==

== ENCOUNTER 2024-11-22 02:08 | Outpatient (CLI) | payer MEDICARE, MEDICAID, SELFPAY ==
--- NOTE | 2024-11-15 14:54 | PDOC.EEG_ITS ---
Neurology EEG EEG: [facility] Department of Neurology EEG REPORT Date of Recordin11/15/24 Interpreting Physician: Dr. Isabel Back PCP/Referring Provider: Zulma Corrales NP Reason for study: Ms. Otto is a 69 year-old with schizophrenia and dementia with a recent event concerning for seizure. Current Medications: Home Medications ?Medication ?Instructions ?Recorded ?Confirmed ?Type enoxaparin 40 mg/0.4 mL 40 mg subcut BID 09/06/24 10/25/24 Histo ry subcutaneous syringe levetiracetam 250 mg tablet 500 mg (2 x 250 mg) PO BID #60 tabs 08/2310/25/24 Rx paliperidone palmitate 117 mg/0.75 117 mg IM Q30D 10/01/24 10/25/24 History mL intramuscular syringe (Invega Sustenna) lorazepam 2 mg/mL injection syringe 2 mg IM ONCE PRN 10/15/24 10/25/24 Histo ry METHODS: A 21 channel digitized electroencephalogram was performed in the [facility] Clinical Neurophysiology Laboratory. The 10/20 international system of electrode placement was used and bipolar and referential electrode montages were recorded. In addition to EEG the patient was monitored for EKG and lateral/vertical eye movements. Activation procedures of photic stimulation and hyperventilation were performed if applicable. Video was used during activation procedures and during events where applicable. The duration of the recording was 30 minutes. DESCRIPTION OF EEG: The patient was noted to be awake, drowsy, and brief sleep during the recording. During maximal wakefulness a 9-Hz posterior background rhythm was present which was well-modulated, symmetrical, reactive to eye opening, and of moderate voltage. With eye opening the background activity changed to a low voltage mixture of alpha, beta, and occasional theta range frequencies. Faster frequencies were present in the bilateral anterior head regions. There was a normal anterior-posterior voltage gradient. During drowsiness, there was attenuation of the posterior dominant background rhythm and vertex waves. Stage II sleep was present with symmetrical sleep spindles, K-complexes, and vertex waves. There was mild, generalized, moderate-amplitude, non-rhythmic theta slowing during wakefulness. There were occasional high-amplitude C3 spike-waves, better seen during sleep. Activating Procedures: Photic stimulation was performed which produced a symmetrical posterior driving response at various flash frequencies. Hyperventilation was not performed. EKG: EKG revealed normal sinus rhythm. INTERPRETATION: This EEG is abnormal due to: #1. Occasional C3 spike-waves. #2. Mild, non-rhythmic, generalized theta slowing. 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 The generalized slowing is suggestive of a mild diffuse cerebral encephalopathy of broad differential including toxic- metabolic etiology. Clinical correlation is advised. Isabel Back MD Date of service: 11/15/24
--- NOTE | 2024-11-22 11:30 | DI.MRI_ITS ---
Exam(s) MR BRAIN WO EXAM: MR BRAIN WO CLINICAL HISTORY: first seizure, SEIZURE LIKE ACTIVITY, DEMENTIA, R56.9, F03.90 TECHNIQUE: Multiplanar multisequence MRI of the brain was performed. COMPARISON: CT CT BRAIN NECK CTA from 09/06/2024 FINDINGS: The exam is limited by motion artifact as well as artifact from left shoulder prosthesis. VENTRICLES AND EXTRA AXIAL SPACES: Moderately dilated, unchanged from prior. MIDLINE SHIFT: None. CEREBRAL PARENCHYMA: No focus of restricted diffusion to suggest acute infarct. No space-occupying lesion identified. Moderate to severe atrophy. Mild scattered foci of high signal in the white matter consistent with sequela of chronic microvascular disease. BRAINSTEM/CEREBELLUM: Mqfo-ay-cdzzwwpt atrophy. VISUALIZED PARANASAL SINUSES: Clear. MASTOIDS:Clear. Vasculature: Normal flow void. PITUITARY GLAND: Unremarkable. ORBITS: Unremarkable. IMPRESSION: Moderate to severe cerebral atrophy. Moderate ventricular dilatation which appears to be commensurate with the degree of atrophy. No evidence of mass, hemorrhage or acute infarct. Mild white matter changes. DATA REPOSITORY:
== END 2024-11-22 02:28 ==
PROVIDERS: PCP Family Medicine; Visit Provider Psychiatry & Neurology Neurology
DX: R56.9 Unspecified convulsions (principal); G31.9 Degenerative disease of nervous system, unspecified; F03.90 Unspecified dementia, unspecified severity, without behavioral disturbance, psychotic disturbance, mood disturbance, and anxiety
CPT/HCPCS: 70551

== ENCOUNTER → 2024-12-25 08:42 | Outpatient (BNVA) | payer MEDICARE, MEDICAID, SELFPAY | PROVIDERS: PCP Family Medicine; Referring Provider Family Medicine; Visit Provider Psychiatry & Neurology Neurology | DX: R56.9 Unspecified convulsions (principal); F03.90 Unspecified dementia, unspecified severity, without behavioral disturbance, psychotic disturbance, mood disturbance, and anxiety; F20.9 Schizophrenia, unspecified; F29 Unspecified psychosis not due to a substance or known physiological condition | CPT/HCPCS: 99214 ==